=== PATIENT | female | born 1965 | race Two or more races ===

== ENCOUNTER 2019-11-15 22:00 | Inpatient (IN) | payer MEDICARE, MEDICAID ==
[~2019-11-15] VITALS: Ht 170.2 cm; Wt 90.7 kg
--- NOTE | 2019-11-15 22:00 | NUR ---
WENCESLAO C/O VERBALLY ABUSIVE TO SNF STAFF, CALLING [employer] & MAKING FALSE CLAIM PER EMT REPORT. PT ON 5150 HOLD. PT C/O BACK PAIN, PT TO BED 7, -SOB, VSS, NAD NOTED, PENDING MD BARNES
[2019-11-15 22:38] LABS: BASOPHILS # (AUTO) 0.1 /CMM (0.0-0.2); EOSINOPHILS % (AUTO) 1.4 % (0.0-6.0); HEMATOCRIT 34 % (33-45); HEMOGLOBIN 11.3 g/dL (11.5-14.8); LYMPHOCYTES # (AUTO) 2.4 /CMM (0.8-4.8); LYMPHOCYTES % (AUTO) 33.2 % (20.0-44.0); MEAN CORPUSCULAR HGB CONC 33 g/dl (31.0-36.0); MEAN CORPUSCULAR VOLUME 89 fL (82-100); MONOCYTES # (AUTO) 0.6 /CMM (0.1-1.30); MONOCYTES % (AUTO) 8.8 % (2.0-12.0); NEUTROPHILS % (AUTO) 55.6 % (43.0-81.0); PLATELET COUNT (AUTO) 356 /CMM (150-450); RED BLOOD CELL COUNT(AUTO) 3.79 MIL/uL (4.0-5.2); WHITE BLOOD COUNT (AUTO) 7.3 K/uL (4.3-11.0)
[2019-11-15 22:46] LABS: CARBON DIOXIDE 27 mmol/L (21-32); CHLORIDE 97 mmol/L (98-107); CREATININE 0.5 mg/dL (0.6-1.3); GLUCOSE 137 mg/dL (74-106); POTASSIUM 3.9 mmol/L (3.5-5.1); SODIUM SERUM 131 mmol/L (136-145); UREA NITROGEN, BLOOD 16 mg/dL (7-18)
[2019-11-15 22:52] LABS: ACETAMINOPHEN < 2 ug/ml (10-30); ALANINE AMINOTRANSFERASE 23 U/L (12-78); ALBUMIN 3.4 g/dL (3.4-5.0); ALCOHOL, BLOOD < 3 mg/dL (0-0); ALKALINE PHOSPHATASE 132 U/L (46-116); ASPARTATE AMINOTRANSFERASE 15 U/L (15-37); BILIRUBIN,DIRECT 0.1 mg/dL (0.0-0.2); BILIRUBIN,TOTAL 0.2 mg/dL (0.2-1.0); SALICYLATE 2.3 mg/dL (2.8-20.0); TOTAL PROTEIN, SERUM 7.3 g/dL (6.4-8.2)
[2019-11-15] MEDS ORDERED: LORAZEPAM 1 MG TABLET ONE (22:59)
[2019-11-15] MEDS ORDERED: LORAZEPAM 1 MG TABLET PO ONE (23:00)
[2019-11-15] MEDS ORDERED: LISI-657 PO (23:12)
[2019-11-15] MEDS ORDERED: ARIP10TA9 PO (23:12)
[2019-11-15] MEDS ORDERED: LEVO125T8 PO (23:12)
[2019-11-15] MEDS ORDERED: DIVA500T4 PO (23:12)
[2019-11-15] MEDS ORDERED: TEMA15CA5 PO (23:12)
[2019-11-15] MEDS ORDERED: LORA-259 PO (23:12)
[2019-11-15] MEDS ORDERED: ATOR10TA PO (23:12)
[2019-11-15] MEDS ORDERED: SODI100037 PO (23:12)
[2019-11-15] MEDS ORDERED: ALBU18HF2 INH (23:12)
[2019-11-15] MEDS ORDERED: OXYC-128 PO (23:12)
[2019-11-15] MEDS ORDERED: CHLO25TA13 PO (23:12)
[2019-11-15 23:18] LABS: APPEARANCE,URINE Clear (CLEAR); BILIRUBIN,URINE Negative (NEGATIVE); BLOOD, URINE Trace-lysed Ery/uL (NEGATIVE); COLOR,URINE Yellow (YELLOW); KETONES,URINE Negative (NEGATIVE); LEUKOCYTE ESTERASE ,URINE Negative (NEGATIVE); NITRITE, URINE Negative (NEGATIVE); PROTEIN,URINE Negative (NEGATIVE); UGLUCOSE Negative (NEGATIVE); UROBILINOGEN,URINE 0.2 EU/dL (0.2)
--- NOTE | 2019-11-15 23:21 | NUR ---
REPORT GIVENT TO [facility] NURSE AT [facility], WILL BE TRANSPORTED TO [facility] ONCE ALL PAPERS READY
--- NOTE | 2019-11-15 23:56 | NUR ---
PT TRANSPORTED TO [facility]
[2019-11-16 00:03] LABS: BACTERIA,URINE Few /HPF (None Seen); SQUAMOUS EPITHELIAL CELL,UR Few /HPF (None Seen); WBC,URINE NONE SEEN /HPF (0-3)
[2019-11-16] MEDS ORDERED: OXYC-128 PO (00:25)
[2019-11-16] MEDS ORDERED: ATOR10TA PO (00:25)
[2019-11-16] MEDS ORDERED: ALBU18HF2 INH (00:25)
[2019-11-16] MEDS ORDERED: BLOOD SUGAR DIAGNOSTIC 1 EACH STRIP IN ONE (00:30)
[2019-11-16] MEDS ORDERED: MAGNESIUM HYDROXIDE 30 ML UDC PO PRN (00:30)
[2019-11-16] MEDS ORDERED: TEMAZEPAM 15 MG CAPSULE PO PRN (00:30)
[2019-11-16] MEDS ORDERED: MAG HYDROX/AL HYDROX/SIMETH 30 ML UDC PO PRN (00:30)
[2019-11-16] MEDS ORDERED: ACETAMINOPHEN 325 MG TABLET PO PRN (00:30)
[2019-11-16 01:40] VITALS: BP 151/67
--- NOTE | 2019-11-16 03:27 | NUR ---
PT COMPLAINED OF PAIN LEVEL OF 7/10, MOANING. I CALLED SCRAP SHEAR OPERATOR ANA CALLED WHO GAVE AN ORDER FOR PERCOSET 5-325 1 TAB PO ONCE. PHARMACY INFORMED OF ORDER.
[2019-11-16] MEDS: oxyCODONE/APAP (5/325 MG) 1 UDTAB TABLET PO PRN ×4 (03:43→20:25)
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
--- NOTE | 2019-11-16 05:57 | NUR ---
PT REFUSED AM BLOOD DRAW FROM LAB STAFF
[2019-11-16] MEDS: LORAZEPAM 1 MG TABLET PO PRN ×3 (06:11→20:57)
--- NOTE | 2019-11-16 06:43 | NUR ---
PT BREATHING TREATMENT EQUIPMENT IN PT LOCKER, AWAITING EVALUATION BY OT BEFORE USE
--- NOTE | 2019-11-16 07:40 | NUR ---
CALLED AND LEFT A MESSAGE FOR DR COLORADO ABOUT HIS NEW ADMIT AT 0735, AND LEFT A CALL BACK NUMBER. ENDORSED TO AM SHIFT
[2019-11-16 08:00] VITALS: BP 126/56
[2019-11-16] MEDS: LEVOTHYROXINE SODIUM 125 MCG TABLET PO SCH (08:20)
[2019-11-16] MEDS: LISINOPRIL (10MG) 10 MG TABLET PO SCH (08:21)
[2019-11-16] MEDS: ALBUTEROL FS 2.5 MG/0.5 ML VIAL.NEB NEB SCH ×4 (09:52→20:35)
--- NOTE | 2019-11-16 13:43 | NUR ---
Pt. is highly agitated, aggressive, intrusive to staffs, verbally abusive, screaming and yelling. Dr. Sifuentes made aware and ordered Thorazine 50 mg IM and Ativan 2 mg IM x1 Addendum: 11/16/19 at 1405 by JIA HUBER RN Dr. Sifuentes notified that we don't have Thorazine and ordered Haldol 5 mg IM, Ativan 2 mg IM and Benadryl [address] Sifuentes made aware that pt. requested for the IM.
[2019-11-16] MEDS ORDERED: HALOPERIDOL LACTATE INJ 5 MG/ML VIAL IM ONE (14:00)
[2019-11-16] MEDS ORDERED: diphenhydrAMINE HCL 50 MG/ML VIAL IM ONE (14:00)
[2019-11-16] MEDS ORDERED: LORAZEPAM INJ 2 MG/ML VIAL IM ONE (14:00)
[2019-11-16 16:00] VITALS: BP 146/97
[2019-11-16 16:42] LABS: ALBUMIN 3.5 g/dL (3.4-5.0); BILIRUBIN,TOTAL 0.2 mg/dL (0.2-1.0); CALCIUM, SERUM 9.1 mg/dL (8.5-10.1); CREATININE 0.7 mg/dL (0.6-1.3); POTASSIUM 4.7 mmol/L (3.5-5.1); TOTAL PROTEIN, SERUM 7.4 g/dL (6.4-8.2)
[2019-11-16] MEDS: ATORVASTATIN 10 MG TABLET PO SCH (17:18)
[2019-11-16 20:13] VITALS: BP 168/71
[2019-11-16] MEDS: CARBAMAZEPINE 200 MG TABLET PO SCH (22:03)
[2019-11-16] MEDS: clonazePAM 0.5 MG TABLET PO SCH (22:04)
[2019-11-16] MEDS: chlorproMAZINE HCL 25 MG TABLET PO SCH (22:04)
[2019-11-16] MEDS: ARIPIPRAZOLE 5 MG TABLET PO SCH (22:04)
[2019-11-17] MEDS: ALBUTEROL FS 2.5 MG/0.5 ML VIAL.NEB NEB SCH ×7 (00:21→23:30)
--- NOTE | 2019-11-17 03:06 | NUR ---
PT WOKE UP COMPLAINING OF CONSTIPATION, MOM GIVEN PO. WILL CONTINUE TO MONITOR.
[2019-11-17] MEDS: oxyCODONE/APAP (5/325 MG) 1 UDTAB TABLET PO PRN ×3 (03:52→21:45)
[2019-11-17 08:00] VITALS: BP 121/49
[2019-11-17] MEDS: clonazePAM 0.5 MG TABLET PO SCH ×3 (08:06→16:45)
[2019-11-17] MEDS: chlorproMAZINE HCL 25 MG TABLET PO SCH ×3 (08:06→16:45)
[2019-11-17] MEDS: LEVOTHYROXINE SODIUM 125 MCG TABLET PO SCH (08:06)
[2019-11-17] MEDS: LISINOPRIL (10MG) 10 MG TABLET PO SCH (08:06)
[2019-11-17] MEDS: CARBAMAZEPINE 200 MG TABLET PO SCH ×3 (08:08→23:03)
[2019-11-17 08:30] LABS: CHOLESTEROL 152 mg/dL (<200); HDL CHOLESTEROL 88 mg/dL (40-60); LDL 59 mg/dL (0-99); TRIGLYCERIDES 71 mg/dL (30-150)
--- NOTE | 2019-11-17 10:49 | NUR ---
Facility Contact: THANH contacted Faisal ([phone]) from [facility] and he stated that the pt will be accepted back to their facility.
--- NOTE | 2019-11-17 11:03 | NUR ---
CONTACTED PHARMACY X3 D/T [facility] AWAITING MEDICATION.
[2019-11-17] MEDS: ARIPIPRAZOLE 5 MG TABLET PO SCH ×2 (12:35→16:45)
--- NOTE | 2019-11-17 14:31 | NUR ---
Family Contact: THANH called the pts sister, Toshia ([phone]), and informed her that the pt appears to be labile and not appropriate for discharge at this time. THANH informed her that [facility] will take her back and the pt would like to return.
--- NOTE | 2019-11-17 14:35 | NUR ---
Initial Discharge Plan: Pt currently resides at [facility] located at [address] [place] [address]; ([phone]). Per pt, she would like to return to the facility. THANH spoke to Faisal ([phone]) from the facility and he stated that the pt will be accepted back. THANH will work with the MD and the pt regarding appropriate discharge planning. THANH will form a safe and proper discharge plan.
[2019-11-17 16:00] VITALS: BP 109/63
--- NOTE | 2019-11-17 16:32 | NUR ---
SPOKE TO PHARMACY REGARDING PERCOCET BEING SCANNED UNDER THE "ONE TIME" ORDER. ONE TIME ORDER CANCELLED BY PHARMACIST.
[2019-11-17] MEDS: LORAZEPAM 1 MG TABLET PO PRN (16:47)
[2019-11-17] MEDS: GUAIFENESIN 300 MG/15 ML UDC PO PRN (16:47)
--- NOTE | 2019-11-17 17:03 | NUR ---
PRN ATIVAN GIVEN FOR RESTLESSNESS AND ROBITUSSIN GIVEN FOR COUGH/CONGESTION.
[2019-11-17] MEDS: ATORVASTATIN 10 MG TABLET PO SCH (17:04)
[2019-11-17 20:30] VITALS: BP 104/44
[2019-11-17 21:40] VITALS: BP 145/66
--- NOTE | 2019-11-17 21:46 | NUR ---
[facility] RN NOTES: PT C/O OF LOWER BACK PAIN. PT STATED, "IM HAVING DAMN BACK PAIN. I NEED MY PAIN MED." CHECKED PT VITALS WITHIN NORMAL LEVELS. OFFERED PERCOCET 5/325MG PO PRN ORDERED. PT AGREED. TOLERATED MEDICATION WELL CONTINUE TO MONITOR.
[2019-11-18] MEDS: ALBUTEROL FS 2.5 MG/0.5 ML VIAL.NEB NEB SCH ×6 (04:39→23:48)
[2019-11-18 08:00] VITALS: BP 126/58
[2019-11-18] MEDS: ARIPIPRAZOLE 5 MG TABLET PO SCH ×2 (08:21→17:14)
[2019-11-18] MEDS: LEVOTHYROXINE SODIUM 125 MCG TABLET PO SCH (08:21)
[2019-11-18] MEDS: CARBAMAZEPINE 200 MG TABLET PO SCH ×3 (08:21→21:28)
[2019-11-18] MEDS: GUAIFENESIN 300 MG/15 ML UDC PO PRN ×2 (08:21→21:28)
[2019-11-18] MEDS: clonazePAM 0.5 MG TABLET PO SCH ×3 (08:21→17:14)
[2019-11-18] MEDS: chlorproMAZINE HCL 25 MG TABLET PO SCH ×3 (08:21→17:14)
[2019-11-18] MEDS: oxyCODONE/APAP (5/325 MG) 1 UDTAB TABLET PO PRN ×3 (08:22→23:17)
[2019-11-18] MEDS: LISINOPRIL (10MG) 10 MG TABLET PO SCH (08:22)
--- NOTE | 2019-11-18 08:24 | NUR ---
PRN ROBITUSSIN GIVEN FOR COUGH AND PRN NORCO GIVEN FOR GENERALIZED PAIN 10/10
[2019-11-18] MEDS: LORAZEPAM 1 MG TABLET PO PRN (12:36)
--- NOTE | 2019-11-18 12:40 | NUR ---
PRN ATIVAN GIVEN FOR RESTLESSNESS
[2019-11-18 16:00] VITALS: BP 128/83
[2019-11-18] MEDS: ATORVASTATIN 10 MG TABLET PO SCH (17:14)
--- NOTE | 2019-11-18 17:25 | NUR ---
PRN NORCO GIVEN FOR PAIN AND PRN ROBITUSSIN GIVEN FOR COUGH
--- NOTE | 2019-11-18 17:53 | NUR ---
WENT IN ROOM TO GIVE PATIENT'S ROOMMATE MEDICATION. UPON ENTERING, I OBSERVED PATIENT SOUND ASLEEP. A FEW MOMENTS LATER, PATIENT NOTICED I WAS IN THE ROOM AND SHE STARTED MOANING AND SCREAMING THAT SHE'S IN PAIN. THEN WHEN I LEFT THE ROOM PATIENT WAS STOPPED SCREAMING AND WENT BACK TO SLEEP. NORCO WAS ALREADY ADMINISTERED PRIOR TO THIS INCIDENT. WILL CONTINUE TO MONITOR PATIENT FOR BEHAVIOR AND PAIN.
[2019-11-18 20:17] VITALS: BP 119/53
--- NOTE | 2019-11-18 21:28 | NUR ---
RN NOTE: PT MEDICATED WITH ROBITUSSIN FOR CONGESTION
--- NOTE | 2019-11-18 23:17 | NUR ---
RN NOTE: PT C/O 10/10 GENERALIZED PAIN. MEDICATED WITH PERCOCET PRN.
[2019-11-19] MEDS: ALBUTEROL FS 2.5 MG/0.5 ML VIAL.NEB NEB SCH ×6 (04:54→23:30)
[2019-11-19] MEDS ORDERED: ALBUTEROL FS 2.5 MG/0.5 ML VIAL.NEB NEB PRN (05:00)
--- NOTE | 2019-11-19 05:06 | NUR ---
THIRD TREATMENT WAS GIVEN LATE BECAUSE PATIENT WAS SLEEPING AT 0300 AND RN ASKED NOT TO WAKE UP PATIENT.
[2019-11-19] MEDS: oxyCODONE/APAP (5/325 MG) 1 UDTAB TABLET PO PRN ×3 (05:23→18:11)
[2019-11-19] MEDS: LORAZEPAM 1 MG TABLET PO PRN ×2 (05:23→11:00)
--- NOTE | 2019-11-19 05:24 | NUR ---
RN NOTE: PT SCREAMING DEMANDING ATIVAN PRN AND PERCOCET FOR PAIN. C/O 10/10 GENERALIZED PAIN. MED WITH ATIVAN 1MG AND PERCOCET PRN
[2019-11-19] MEDS: GUAIFENESIN 300 MG/15 ML UDC PO PRN ×3 (05:47→22:39)
--- NOTE | 2019-11-19 05:48 | NUR ---
RN NOTE: PT C/O CONGESTION. MED WITH DAWIT PRN.
[2019-11-19 08:00] VITALS: BP 130/99
[2019-11-19] MEDS: ARIPIPRAZOLE 5 MG TABLET PO SCH ×2 (08:49→17:05)
[2019-11-19] MEDS: LISINOPRIL (10MG) 10 MG TABLET PO SCH (08:50)
[2019-11-19] MEDS: CARBAMAZEPINE 200 MG TABLET PO SCH ×3 (08:50→21:18)
[2019-11-19] MEDS: clonazePAM 0.5 MG TABLET PO SCH ×3 (08:50→17:47)
[2019-11-19] MEDS: chlorproMAZINE HCL 25 MG TABLET PO SCH ×5 (08:50→21:19)
[2019-11-19] MEDS: LEVOTHYROXINE SODIUM 125 MCG TABLET PO SCH (08:51)
--- NOTE | 2019-11-19 10:16 | NUR ---
MEDICATED FOR GENERALIZED PAIN WITH PERCOCETT.
--- NOTE | 2019-11-19 11:00 | NUR ---
GIVEN ATIVAN PO FOR NERVES.
--- NOTE | 2019-11-19 11:22 | NUR ---
unable to administed HHN med; pt in hallway in wheelchair, yelling, refused tx, wants to "eat and drink first", RN aware
--- NOTE | 2019-11-19 11:37 | NUR ---
MEDICATED WITH ROBITUSSIN FOR LOOSE COUGH.
[2019-11-19] MEDS ORDERED: hydrOXYzine PAMOATE 25 MG CAPSULE PO PRN (14:00)
--- NOTE | 2019-11-19 15:58 | NUR ---
GIVEN VISTARIL FOR NERVES,EXPLAINED THAT PSYCHIATRIST CHANGED SOME OF MEDS DUE TO GROGGINESS.
[2019-11-19 16:00] VITALS: BP 128/90
[2019-11-19] MEDS: ATORVASTATIN 10 MG TABLET PO SCH (18:10)
--- NOTE | 2019-11-19 18:14 | NUR ---
GIVEN PERCOCET FOR GENERALIZED PAIN.
[2019-11-19 20:24] VITALS: BP 169/54
--- NOTE | 2019-11-19 22:39 | NUR ---
RN NOTE: PT MED WITH ROBITUSSIN FOR CONGESTION
--- NOTE | 2019-11-19 22:52 | NUR ---
RN NOTE: MED WITH RESTORIL 15MG PRN PER PT REQUEST FOR INSOMNIA
[2019-11-19] MEDS ORDERED: TEMAZEPAM 7.5 MG CAPSULE PO PRN (23:00)
[2019-11-20] MEDS: ALBUTEROL FS 2.5 MG/0.5 ML VIAL.NEB NEB SCH ×5 (03:50→20:35)
[2019-11-20] MEDS: LEVOTHYROXINE SODIUM 125 MCG TABLET PO SCH (07:30)
--- NOTE | 2019-11-20 08:30 | NUR ---
RN NOTES LAB REPORTED TEGETROL LEVEL OF 12.[address] GUADALUPE STATES HE WILL PLACE ORDERS WHEN EVALUATING PATIENT TO HOLD DOSE FOR NOW.
[2019-11-20 09:00] VITALS: BP 113/68
[2019-11-20] MEDS: chlorproMAZINE HCL 25 MG TABLET PO SCH ×3 (09:00→18:32)
[2019-11-20] MEDS: LISINOPRIL (10MG) 10 MG TABLET PO SCH (09:00)
[2019-11-20] MEDS: clonazePAM 0.5 MG TABLET PO SCH ×3 (09:00→18:32)
[2019-11-20] MEDS: CARBAMAZEPINE 200 MG TABLET PO SCH ×2 (09:00→13:00)
[2019-11-20] MEDS: ARIPIPRAZOLE 5 MG TABLET PO SCH ×3 (09:00→18:33)
--- NOTE | 2019-11-20 10:00 | NUR ---
RN NOTES PATIENT NOTED LETHARGIC, PATIENT HAD AN EPISODE OF VOMITING AND PATIENT AMBULATED TO BATHROOM RETURNED TO BED NOTED SLEEPING IN BED. HELD ALL MEDICATIONS DUE TO SEDATION. VS WNL. PATIENT REQUESTED BREATHING TREATMENT RT MADE AWARE TREATMENT GIVEN.
--- NOTE | 2019-11-20 10:30 | NUR ---
RN NOTES PATIENT EVALUATED BY DR. GUADALUPE.
--- NOTE | 2019-11-20 13:00 | NUR ---
RN NOTES PATIENT SEEN AND EVALUATED BY DR. LEVINE, INFORMED HIM OF PATIENTS SEDATED STATE. NO NEW ORDERS GIVEN CONTINUE TO MONITOR.
--- NOTE | 2019-11-20 17:45 | NUR ---
RN NOTES PATIENT NOTED VOMITING STATES SHE FEELS NAUSEAS. NOTED PATIENT STIMULATING VOMITING BY PUTTING HER FINGER IN HER THROAT. SHE STATES SHE FEELS SICK. DR. LEVINE MADE AWARE ORDERS FOR CBC,BMP, UA AND CHEST XRAY. ALSO ORDERS FOR ZOFRAN 4MG NEEDED FOR NAUSEA. PATIENTS VS WNL BP OF 156/98 PULSE 89 O2 SAT. 92% WILL CONTINUE TO MONITOR.
[2019-11-20] MEDS: ATORVASTATIN 10 MG TABLET PO SCH (18:00)
--- NOTE | 2019-11-20 18:15 | NUR ---
RN NOTES PATIENT NOTED ON HER WHEELCHAIR NAKED IN THE HALLWAY. PATIENT ALSO NOTED URINATING ON THE FLOOR IN HER ROOM. SCHEDULED MEDICATIONS ADMINISTERED. WILL ENDORSE CARE TO PM SHIFT.
[2019-11-20] MEDS: oxyCODONE/APAP (5/325 MG) 1 UDTAB TABLET PO PRN (18:16)
[2019-11-20] MEDS ORDERED: ONDANSETRON 4 MG TAB.RAPDIS PO PRN (18:30)
[2019-11-20 19:38] LABS: CALCIUM, SERUM 8.7 mg/dL (8.5-10.1); CREATININE 0.5 mg/dL (0.6-1.3); POTASSIUM 4.7 mmol/L (3.5-5.1)
--- NOTE | 2019-11-20 20:05 | NUR ---
CRITICAL LAB VALUE MIDDLEWARE SYSTEMS ARCHITECT ARNEL CALLED TO INFORM THAT PATIENT'S SODIUM LEVEL IS 112 & CHLORIDE IS 80. PATIENT IS DOZING INTERMITTENTLY, AROUSABLE & LETHARGIC. VITALS CHECKED 154/84, 82, 20, 97.6, REFUSED PULSE OX AT THIS TIME, GOT AGITATED & WANTED TO BE COVERED WITH THE BLANKET RIGHT AWAY, CALLED LINE CONTROLLER EPIC MD TO INFORM ABOUT CRITICAL LAB VALUES , LEFT A MESSAGE & WAITING FOR MD TO CALL BACK. WILL CONTINUE TO MONITOR VERY CLOSELY FOR ANY CHANGE OF CONDITION.
--- NOTE | 2019-11-20 20:52 | NUR ---
TRANSFER PATIENT TO [facility] DR. PEREZ CALLED BACK, INFORMED HIM ABOUT PATIENT'S CURRENT CONDITION, CRITICAL LAB VALUE OF SODIUM 112 & CHLORIDE 80, LETHARGIC BUT AROUSABLE. A & O X 2, CONFUSED AT THIS TIME. VITALS 154/84, 82, 20, 97.6. MD CLIVE PEREZ ORDERED TO TRANSFER THE PATIENT TO [facility] & [facility] STAFF TO CALL DR. PEREZ ONCE PATIENT IS TRANSFERRED TO [facility].
--- NOTE | 2019-11-20 20:53 | NUR ---
GPS RN NOTE CHARGE NURSE CALLED DR. FIGUEROA & INFORMED ABOUT PATIENT'S CURRENT CONDITION & NEW ORDERS BY MD CLIVE PEREZ. ORDERED TO CONTINUE 14 DAY HOLD & CONTINUE ALL PSYCH MEDS. ORDER NOTED & CARRIED OUT. CONTINUING TO MONITOR THE PATIENT CLOSELY FOR ANY CHANGE OF CONDITION.
[2019-11-20 21:02] LABS: BASOPHILS # (AUTO) 0.1 /CMM (0.0-0.2); BASOPHILS % (AUTO) 1.1 % (0.0-2.0); EOSINOPHILS % (AUTO) 1.5 % (0.0-6.0); HEMATOCRIT 35 % (33-45); HEMOGLOBIN 11.8 g/dL (11.5-14.8); LYMPHOCYTES % (AUTO) 17.9 % (20.0-44.0); MEAN CORPUSCULAR HGB CONC 33 g/dl (31.0-36.0); MEAN CORPUSCULAR VOLUME 89 fL (82-100); MONOCYTES # (AUTO) 0.6 /CMM (0.1-1.30); MONOCYTES % (AUTO) 10.2 % (2.0-12.0); NEUTROPHILS % (AUTO) 69.3 % (43.0-81.0); PLATELET COUNT (AUTO) 287 /CMM (150-450); RED BLOOD CELL COUNT(AUTO) 3.99 MIL/uL (4.0-5.2); WHITE BLOOD COUNT (AUTO) 5.8 K/uL (4.3-11.0)
--- NOTE | 2019-11-20 21:28 | NUR ---
PATIENT TRANSFERRED TO [facility] PATIENT IS AWAKE, LETHARGIC, A & O X 2, CONFUSED, NO ACUTE DISTRESS NOTED AT THIS TIME. REFUSING CARE, GETS AGITATED WHEN ADL CARE OFFERED, UNCOOPERATIVE BEHAVIOR. REFUSED TO PUT GOWN ON DURING TRANSFER, WANTED TO BE NAKED ALL THE TIME BUT COVERED WITH THE BLANKET. ALL REQUIRED TRANSFER PAPERS/MEDICATION LIST PREPARED & SENT WITH THE PATIENT. TRANSFERRED PATIENT TO [facility]/TELE IN STABLE CONDITION WITH 2 STAFF MEMBERS & SAFETY PRECAUTIONS MAINTAINED. ALL BELONGINGS SENT WITH THE PATIENT. REPORT GIVEN TO RN IN [facility] AT BEDSIDE. SISTER GIORGIO WAS CALLED & LEFT A VOICEMAIL AT [phone]. [facility] RN WAS MADE AWARE TO CALL DR. PEREZ FOR FURTHER TREATMENT ORDERS.
[2019-11-21] MEDS ORDERED: ACET-868 PO (07:55)
[2019-11-21] MEDS ORDERED: GUAI100S11 PO (07:55)
[2019-11-21] MEDS ORDERED: MAG30ORA PO (07:55)
[2019-11-21] MEDS ORDERED: CLON0.5T4 PO (07:55)
[2019-11-21] MEDS ORDERED: ALBU2.5V38 IH (07:55)
[2019-11-21] MEDS ORDERED: MAGN400O6 PO (07:55)
[2019-11-21] MEDS ORDERED: HYDR-3895 PO (07:55)
[2019-11-21] MEDS ORDERED: ONDA4TAB5 PO (07:55)
[2019-11-21] MEDS ORDERED: CARB200T PO (07:55)
--- NOTE | 2019-11-21 08:28 | NUR ---
Discharge Note: Pt was discharged to the Medical Floor of [facility] on 11/20/19.
== END 2019-11-20 21:23 | disposition short-term general hospital (02) | DRG 885 ==
LOC: ER 22:01 → GPS 23:13
PROVIDERS: ADMIT Psychiatry & Neurology Psychiatry; ATTEND Nurse Practitioner Acute Care
DX: F31.64 Bipolar disorder, current episode mixed, severe, with psychotic features (principal); E87.1 Hypo-osmolality and hyponatremia; I10 Essential (primary) hypertension; F29 Unspecified psychosis not due to a substance or known physiological condition; F41.9 Anxiety disorder, unspecified; G89.29 Other chronic pain; M54.9 Dorsalgia, unspecified; E03.9 Hypothyroidism, unspecified; F17.210 Nicotine dependence, cigarettes, uncomplicated; J45.909 Unspecified asthma, uncomplicated; E78.5 Hyperlipidemia, unspecified; M19.90 Unspecified osteoarthritis, unspecified site; Z88.2 Allergy status to sulfonamides
CPT/HCPCS: 36415; 71045-TC; 80048-TC; 80053-TC; 80061-TC; 80076-TC; 80156-TC; 80305; 81000-TC; 85025-TC; 87081-TC; 97116-TC; 97530-TC; 97535-TC; G0480; J1200; J1630; J2060; J3230; Q0161; Q0162; Q0177

== ENCOUNTER 2019-11-20 21:27 | Inpatient (IN) | payer MEDICARE, MEDICAID ==
[~2019-11-20] VITALS: Ht 162.6 cm; Wt 109.3 kg
[~2019-11-20 21:27] MED LIST: ALBU18HF2 INH; ARIP10TA9 PO; ATOR10TA PO; CHLO25TA13 PO; DIVA500T4 PO; LEVO125T8 PO; LISI-657 PO; LORA-259 PO; OXYC-128 PO; SODI100037 PO; TEMA15CA5 PO
[2019-11-20 22:00] VITALS: BP 130/58
[2019-11-20] MEDS ORDERED: IV Sodium Chloride 3% 500 ML 500 ML IV SCH (22:30)
[2019-11-20] MEDS ORDERED: IV Sodium Chloride 3% 500 ML 100 ML IV ONE (22:30)
--- NOTE | 2019-11-20 22:52 | NUR ---
[facility] RN NOTE ADMITTED 54 YEARS OLD FEMALE PT FROM [facility] WITH THE DX OF HYPONATREMIA BY DR CLIVE PEREZ. PT IS A/O X 2, NO SOB, NO DISTRESS OR DISCOMFORT NOTED. DENIES PAIN. GETS AGITATED EASILY. NO SI NOTED AT THIS TIME. PT ALSO DENIES ANY SUICIDAL THOUGHTS. SKIN INTACT. NO IV ACCESS YET. WILL TRY TO INSERT NEW LINE. ADMITTING ORDERS CHECKED AND CARRIED OUT. SITTER AT BED SIDE. PT IS ON HOLD 5250. ON TELE MONITOR SR HR 93. ALL NEEDS ATTENDED. SIDE RAILS UP X 3 AND CALL LIGHT WITHIN REACH. VSS. CONTINUE TO MONITOR CLOSELY.
[2019-11-20] MEDS ORDERED: ONDANSETRON HCL/PF 4 MG/2 ML VIAL IVP PRN (23:00)
[2019-11-20] MEDS ORDERED: Z GUARD REMEDY 2 OZ OINT TP PRN (23:00)
[2019-11-20 23:28] LABS: CALCIUM, SERUM 9.3 mg/dL (8.5-10.1); CREATININE 0.5 mg/dL (0.6-1.3); MAGNESIUM 1.6 mg/dL (1.8-2.4); PHOSPHORUS 3.6 mg/dL (2.5-4.9); POTASSIUM 4.1 mmol/L (3.5-5.1)
--- NOTE | 2019-11-20 23:30 | NUR ---
[facility] RN NOTE LEONARDO RN INSERTED NEW IV LINE #22 G IN RFA. STARTED 3% NS 100 ML BOLUS THEN WILL START 30 ML/HR PER MD ORDERS. PT IS SLEEPING, COMFORTABLY. SITTER AT BED SIDE.
--- NOTE | 2019-11-20 23:45 | NUR ---
[facility] RN NOTE CRITICAL LAB OF SERUM OSMOL 236, NA 111, CL 78. DR CLIVE PEREZ INFORMED. NO NEW ORDER JUST SEIZURE PRECAUTIONS.
[2019-11-21] MEDS: LORAZEPAM 1 MG TABLET PO PRN ×3 (00:47→20:04)
[2019-11-21] MEDS: TEMAZEPAM 15 MG CAPSULE PO PRN ×2 (00:47→21:44)
--- NOTE | 2019-11-21 00:48 | NUR ---
[facility] RN NOTE PT IS UNABLE TO SLEEP AND BECOME VERY AGITATED. RESTORIL 15 MG FOR SLEEP AND ATIVAN 1 MG PO GIVEN FOR AGITATION. 3 %NS INFUSING WELL. NO S/S OF INFILTRATION NOTED.
[2019-11-21] MEDS: ACETAMINOPHEN 325 MG TABLET PO PRN (01:11)
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
[2019-11-21 02:06] LABS: CALCIUM, SERUM 8.9 mg/dL (8.5-10.1); CREATININE 0.5 mg/dL (0.6-1.3); MAGNESIUM 1.5 mg/dL (1.8-2.4); PHOSPHORUS 3.8 mg/dL (2.5-4.9)
--- NOTE | 2019-11-21 02:14 | NUR ---
[facility] RN NOTE HEADACHE SUBSIDE 11/04.
[2019-11-21] MEDS ORDERED: ALBUTEROL FS 2.5 MG/0.5 ML VIAL.NEB NEB PRN ×2 (03:30→14:30)
[2019-11-21 03:50] LABS: CREATININE 0.7 mg/dL (0.6-1.3); MAGNESIUM 1.7 mg/dL (1.8-2.4); PHOSPHORUS 4.1 mg/dL (2.5-4.9); POTASSIUM 3.7 mmol/L (3.5-5.1)
[2019-11-21] MEDS ORDERED: Magnesium 1 GM/2 ML VIAL IV ONE (04:00)
[2019-11-21] MEDS: Magnesium 1GM/D5W 100ML PREMIX PIGGYBACK IV SCH ×2 (04:32→05:44)
--- NOTE | 2019-11-21 04:52 | NUR ---
NET FISHER NOTE MAG LEVEL 1. 7 FROM 1.5. CLIVE INFORMED AND RECEIVED NEW ORDER TO GIVE ONLY 2 GM OF MAG IV. ORDER NOTED AND CARRIED OUT. Addendum: 11/21/19 at 0628 by YUE LOWRY RN ICU WRITTEN IN ERROR SUPPOSE HIRO DELGADILLO
[2019-11-21] MEDS: oxyCODONE/APAP (5/325 MG) 1 UDTAB TABLET PO PRN ×2 (05:14→14:45)
--- NOTE | 2019-11-21 05:14 | NUR ---
[facility] RN NOTE PT C/O PAIN 8/10 ALL OVER, PERCOCET 1 TAB PO GIVEN. CONTINUE TO MONITOR HER.
--- NOTE | 2019-11-21 06:14 | NUR ---
[facility] RN NOTE PT IN BED FALLING ASLEEP, PAIN SUBSIDED 2/10. SITTER AT BED SIDE.
[2019-11-21 06:29] LABS: BASOPHILS % (AUTO) 0.2 % (0.0-2.0); EOSINOPHILS % (AUTO) 0.5 % (0.0-6.0); HEMATOCRIT 38 % (33-45); HEMOGLOBIN 12.9 g/dL (11.5-14.8); LYMPHOCYTES # (AUTO) 0.9 /CMM (0.8-4.8); LYMPHOCYTES % (AUTO) 11.2 % (20.0-44.0); MEAN CORPUSCULAR HGB CONC 34 g/dl (31.0-36.0); MEAN CORPUSCULAR VOLUME 86 fL (82-100); MONOCYTES # (AUTO) 0.7 /CMM (0.1-1.30); NEUTROPHILS # (AUTO) 6.4 /CMM (1.8-8.9); NEUTROPHILS % (AUTO) 79.1 % (43.0-81.0); PLATELET COUNT (AUTO) 359 /CMM (150-450); RED BLOOD CELL COUNT(AUTO) 4.38 MIL/uL (4.0-5.2); WHITE BLOOD COUNT (AUTO) 8.1 K/uL (4.3-11.0)
[2019-11-21 06:42] LABS: ALBUMIN 3.5 g/dL (3.4-5.0); BILIRUBIN,TOTAL 0.2 mg/dL (0.2-1.0); CALCIUM, SERUM 9.1 mg/dL (8.5-10.1); CREATININE 0.6 mg/dL (0.6-1.3); MAGNESIUM 2.1 mg/dL (1.8-2.4); PHOSPHORUS 4.2 mg/dL (2.5-4.9); POTASSIUM 3.7 mmol/L (3.5-5.1); TOTAL PROTEIN, SERUM 7.3 g/dL (6.4-8.2)
[2019-11-21 07:10] LABS: THYROID STIMULATING HORMONE 18.117 uIU/mL (0.358-3.74)
--- NOTE | 2019-11-21 07:30 | NUR ---
[facility] RN AM NOTE PT IN BED, FROM [facility], A/O X 2, FOLLOWS COMMAND, ON 5249 EXPIRES Nov, ON 2L O2 NASAL CANULA, NO SOB, NO DISTRESS OR DISCOMFORT NOTED. DENIES PAIN. GETS AGITATED EASILY. NO SI NOTED AT THIS TIME. PT ALSO DENIES ANY SUICIDAL THOUGHTS. LEFT HAND IV G 20 WITH 3%NS AT 30 ML/HR, SITE CLEAR. SITTER AT BED SIDE. NEEDS ANTICIPATED, SIDE RAILS UP X 3 AND CALL LIGHT WITHIN REACH. BED LOW LOCKED, SAFETY MEASURES IN PLACE. WILL CONTINUE TO MONITOR CLOSELY.
[2019-11-21] MEDS: LEVOTHYROXINE SODIUM 125 MCG TABLET PO SCH (07:36)
[2019-11-21] MEDS ORDERED: HYDR-3895 PO (07:55)
[2019-11-21] MEDS ORDERED: ACET-868 PO (07:55)
[2019-11-21] MEDS ORDERED: MAG30ORA PO (07:55)
[2019-11-21] MEDS ORDERED: GUAI100S11 PO (07:55)
[2019-11-21] MEDS ORDERED: ALBU2.5V38 IH (07:55)
[2019-11-21] MEDS ORDERED: CARB200T PO (07:55)
[2019-11-21] MEDS ORDERED: ONDA4TAB5 PO (07:55)
[2019-11-21] MEDS ORDERED: MAGN400O6 PO (07:55)
[2019-11-21] MEDS ORDERED: CLON0.5T4 PO (07:55)
[2019-11-21 08:00] VITALS: BP 114/76
[2019-11-21 08:01] LABS: CALCIUM, SERUM 9.1 mg/dL (8.5-10.1); CREATININE 0.5 mg/dL (0.6-1.3); POTASSIUM 3.9 mmol/L (3.5-5.1)
[2019-11-21 08:04] LABS: MAGNESIUM 2.4 mg/dL (1.8-2.4); PHOSPHORUS 4.3 mg/dL (2.5-4.9)
[2019-11-21] MEDS: DIVALPROEX SODIUM 500 MG TABLET.DR PO SCH ×2 (08:44→20:04)
[2019-11-21] MEDS: LISINOPRIL (10MG) 10 MG TABLET PO SCH (08:44)
[2019-11-21] MEDS ORDERED: IV NS 0.9% 1,000 ML IV PRN (09:30)
[2019-11-21] MEDS ORDERED: IV NS 0.9% 1,000 ML BAG IV PRN (09:30)
--- NOTE | 2019-11-21 09:30 | NUR ---
[facility] RN NOTES DUE MEDS GIVEN PT FOR FOLLOW UP FOR PSYCH CONSULT C/O DR. COLORADO PER DR. FIGUEROA.
[2019-11-21 10:39] LABS: CALCIUM, SERUM 8.7 mg/dL (8.5-10.1); CREATININE 0.7 mg/dL (0.6-1.3); POTASSIUM 3.7 mmol/L (3.5-5.1)
[2019-11-21 10:43] LABS: MAGNESIUM 2.1 mg/dL (1.8-2.4); PHOSPHORUS 3.9 mg/dL (2.5-4.9)
[2019-11-21] MEDS ORDERED: IV Sodium Chloride 3% 500 ML 500 ML IV PRN (11:00)
[2019-11-21] MEDS ORDERED: IPRATROPIUM NEB FS 0.5 MG/2.5 ML AMPUL.NEB NEB PRN (14:30)
[2019-11-21 16:00] VITALS: BP 124/73
--- NOTE | 2019-11-21 16:49 | NUR ---
RN NOTES PATIENT PULLED OUT HER IV, AND LAUGHING ABOUT IT. EXPLAINED THE RISK AND BENEFIT OF HAVING ONE. PATIENT REFUSED. 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 RELAYED TO LAKESHIA RAMOS. OKAY FOR NOW TO HAVE NO IV.
--- NOTE | 2019-11-21 17:03 | NUR ---
RN NOTES URINE SPECIMEN COLLECTED. CALLED LAB FOR GUEST SERVICE TEAM LEADER
[2019-11-21 17:29] LABS: CREATININE, URINE < 13.0 MG/DL (30.0-125.0); URINE SODIUM, RANDOM 13 mmol/l (40-220); URINE TOTAL PROTEIN 2.3 mg/dL (0-11.9)
[2019-11-21] MEDS ORDERED: ATORVASTATIN 10 MG TABLET PO SCH ×2 (18:00→22:00)
[2019-11-21 18:32] LABS: OSMOLALITY,URINE 119 mOS/kg (340-1090)
--- NOTE | 2019-11-21 18:41 | NUR ---
MS RN CLOSING NOTE PT IN BED, RESTING, A/O X 2, FOLLOWS COMMAND, ON 5249 EXPIRES Nov, ON 2L O2 NASAL CANULA, ON AND OFF, NO SOB, NO DISTRESS OR DISCOMFORT NOTED. DENIES PAIN. GETS AGITATED EASILY. NO SI NOTED AT THIS TIME. PT ALSO DENIES ANY SUICIDAL THOUGHTS. NO IV, PATIENT PULLED IT OUT, MD AWARE. SITTER AT BED SIDE. ALL NEEDS MET AT THIS TIME. SIDE RAILS UP X 3 AND CALL LIGHT WITHIN REACH. BED LOW LOCKED, SAFETY MEASURES IN PLACE. WILL ENDORSE TO NEXT SHIFT FOR ED.
--- NOTE | 2019-11-21 19:55 | NUR ---
RN MS OPENING NOTES RECEIVED PATIENT IN BED AWAKE, NOT ANSWERING ANY NURSE'S QUESTIONS, USING CURSE WORDS INSTEAD. PUTTING HER MIDDLE FINGER UP. BREATHING EVEN AND UNLABORED. NO SOB ON 2LPM NC. NO IV DUE TO REFUSAL. SITTER AT BEDSIDE. ALL OTHER NEEDS ATTENDED. SAFETY MEASURES IN PLACE. CALL LIGHT WITHIN REACH,. WILL CONTINUE TO MONITOR .
[2019-11-21 20:00] VITALS: BP 134/70
[2019-11-21] MEDS ORDERED: chlorproMAZINE HCL 25 MG TABLET ONE (22:54)
[2019-11-21] MEDS: chlorproMAZINE HCL 25 MG TABLET PO SCH (22:57)
[2019-11-22] MEDS: oxyCODONE/APAP (5/325 MG) 1 UDTAB TABLET PO PRN ×3 (00:31→14:16)
--- NOTE | 2019-11-22 01:20 | NUR ---
RN MS NOTES PATIENT COMPLAINING OF CONSTIPATION, REQUESTING MOM. INFORMED GUN SEALING MACHINE OPERATOR CLIVE PEREZ REGARDING PATIENT'S REQUEST, WITH ORDER FOR MOM QDAILY PRN. ORDER NOTED AND CARRIED OUT.
[2019-11-22] MEDS ORDERED: MAGNESIUM HYDROXIDE 30 ML UDC PO PRN (01:30)
[2019-11-22] MEDS: LORAZEPAM 1 MG TABLET PO PRN (05:29)
[2019-11-22] MEDS: ACETAMINOPHEN 325 MG TABLET PO PRN (05:30)
--- NOTE | 2019-11-22 06:38 | NUR ---
RN MS CLOSING NOTES PATIENT SITTING IN BED. NO ACUTE CHANGES. REMAINS CONFUSED, NEEDY, AND CURSES A LOT. BREATHING EVEN AND UNLABORED. TOLERATING ROOM AIR. NO IV DUE TO REFUSAL. SITTER AT BEDSIDE. NO FALLS/INJURY NOTED. ALL OTHER NEEDS ATTENDED. SAFETY MEASURES IN PLACE. CALL LIGHT WITHIN REACH,. WILL ENDORSE TO ON COMING NURSE FOR ED.
[2019-11-22 06:45] LABS: CALCIUM, SERUM 8.7 mg/dL (8.5-10.1); CREATININE 0.5 mg/dL (0.6-1.3); PHOSPHORUS 3.8 mg/dL (2.5-4.9); POTASSIUM 3.9 mmol/L (3.5-5.1)
--- NOTE | 2019-11-22 07:00 | NUR ---
RN MS NOTES PATIENT IS SITTING IN BED. PATIENT IS A/O X2 . PATIENT IS ON ROOM AIR NO SOB, NO ACUTE RESPIRATORY DISTRESS. NO PAIN. PATIENT AT THIS TIME IS COMPLIANT WITH CARE. PATIENT IS INCON/CON. PATIENT HAS SITTER AT BEDSIDE. PATIENT HAS NO IV ACCESS. PATIENT DOES NOT WANT IV SITE AT ALL. PATIENT PROVIDED EDUCATION AND PATIENT STILL HAS RESISTANT WITH CARE. BED LOCKED AND LOWEST POSITION CALL LIGHT WITH IN REACH. ALL SAFETY MEASURE IMPLEMENTED PER HOSPITAL POLICY.
[2019-11-22 07:15] LABS: THYROID STIMULATING HORMONE 42.151 uIU/mL (0.358-3.74); URIC ACID 4.4 mg/dL (2.6-7.2)
[2019-11-22] MEDS ORDERED: ARIPIPRAZOLE 5 MG TABLET PO SCH (09:00)
[2019-11-22] MEDS: DIVALPROEX SODIUM 500 MG TABLET.DR PO SCH (09:12)
[2019-11-22] MEDS: clonazePAM 0.5 MG TABLET PO SCH ×2 (09:12→12:43)
[2019-11-22 09:13] VITALS: BP 120/62
[2019-11-22] MEDS: LISINOPRIL (10MG) 10 MG TABLET PO SCH (09:13)
[2019-11-22] MEDS: chlorproMAZINE HCL 25 MG TABLET PO SCH ×2 (09:18→12:43)
[2019-11-22] MEDS: CARBAMAZEPINE 200 MG TABLET PO SCH ×2 (09:18→12:43)
[2019-11-22] MEDS: LEVOTHYROXINE SODIUM 125 MCG TABLET PO SCH (09:20)
[2019-11-22] MEDS ORDERED: ALBUTEROL FS 2.5 MG/0.5 ML VIAL.NEB NEB ONE (14:30)
--- NOTE | 2019-11-22 15:00 | NUR ---
RN MS NOTES PATIENT DISCHARGE TO [facility] ALL DISCHARGE PAPERS TRANSFER TO [facility] PATIENT REFUESED TO SIGN D/C PAPER WORK CHARGE NURSE INFORMED . PATIENT NO COMPLAINS OF PAIN, NO SOB, NO ACUTE RESPIRATORY DISTRESS.
== END 2019-11-22 14:40 | DRG 643 ==
LOC: TELE-TD 21:27 → MEDSG1 11-21 13:42
PROVIDERS: ADMIT Nurse Practitioner Acute Care; ATTEND Nurse Practitioner Acute Care
DX: E22.2 Syndrome of inappropriate secretion of antidiuretic hormone (principal); G93.41 Metabolic encephalopathy; Z68.41 Body mass index [BMI] 40.0-44.9, adult; F11.20 Opioid dependence, uncomplicated; J44.1 Chronic obstructive pulmonary disease with (acute) exacerbation; I10 Essential (primary) hypertension; F32.9 Major depressive disorder, single episode, unspecified; G47.00 Insomnia, unspecified; F17.210 Nicotine dependence, cigarettes, uncomplicated; E87.8 Other disorders of electrolyte and fluid balance, not elsewhere classified; E78.5 Hyperlipidemia, unspecified; E03.9 Hypothyroidism, unspecified; F41.9 Anxiety disorder, unspecified; F25.9 Schizoaffective disorder, unspecified; M19.90 Unspecified osteoarthritis, unspecified site; G89.29 Other chronic pain; M54.5 Low back pain; Z88.2 Allergy status to sulfonamides; F29 Unspecified psychosis not due to a substance or known physiological condition; E66.01 Morbid (severe) obesity due to excess calories; T42.1X5A Adverse effect of iminostilbenes, initial encounter; Y92.89 Other specified places as the place of occurrence of the external cause
CPT/HCPCS: 36415; 80048-TC; 80053-TC; 80061-TC; 80156-TC; 82570-TC; 83735-TC; 83935-TC; 84100-TC; 84155-TC; 84300-TC; 84443-TC; 84484-TC; 84550-TC; 85025-TC; G0378; J3475; J3490; J7030; Q0161

== ENCOUNTER 2019-11-22 14:03 | Inpatient (IN) | payer MEDICARE, OTHER ==
[~2019-11-22] VITALS: Ht 160 cm; Wt 109.3 kg
[~2019-11-22 14:03] MED LIST changes: +ACET-868 PO; +ALBU2.5V38 IH; +CARB200T PO; +CLON0.5T4 PO; -DIVA500T4 PO; +GUAI100S11 PO; +HYDR-3895 PO; -LORA-259 PO; +MAG30ORA PO; +MAGN400O6 PO; +ONDA4TAB5 PO
--- NOTE | 2019-11-22 14:45 | NUR ---
DIE FINISHER NOTE- 54 Y/O FEMALE ADMITTED FROM [facility] RM 105 FOR DEPRESSION AND PSYCHOSIS. PT IS FULL CODE AND A PT OF DR COLORADO. SHE'S ALLERGIC TO SULFA DRUGS AND QUETIAPINE. PT HAVING SUICIDAL THOUGHTS THOUGH CURRENTLY DENIES SI HI AH VH ON FACE TO FACE ASSESSMENT-VS- B/P- 120/62, HR- 80, RR- 18, TEMP- 97.9, SATURATION 97%RA. PT IS ON REGULAR DIET, SKIN INTACT, MILD EDEMA TO LEFT ELBOW AND A BRUISE TO RFA. PHOTOGRAPH TAKEN PLACED IN CHART. PT IS ALERT, ORIENTED TO PERSON, PACE THOUGH CONFUSED ABOUT TIME AND HER PURPOSE HERE. STATES SHES "HERE BECAUSE IM IN PAIN." PT HAS VARIED PMHX- HTN, HYPOTHYROIDISM, SOB/COPD, ASTHMA, HYPONATREMIA AND SEVERAL PSYCHIATRIC ADMISSIONS. PT IS A SMOKER AND HAS DOCUMENTED ETOH USE IN PAST THOUGH CLAIMS TO ABSTAINING FROM ETOH AT PRESENT. PT IS AMBULATORY,THOUGH WEAK, USES [facility] FOR MOBILITY. DR COLORADO AWARE OF ADMISSION, PRODUCTION RECORDER TOBAR NOTIFIED OF ADMISSION AND ASKED TO RECONCILE MEDS. PT RIGHTS DISCUSSED AND EXPLAINED, BOOKLET GIVEN AND VERBALIZED UNDERSTANDING. RESPONSIBLE LIBERTARIAN MADE AWARE OF ADMISSION.
[2019-11-22] MEDS ORDERED: ACETAMINOPHEN 325 MG TABLET PO PRN ×2 (15:00→22:00)
[2019-11-22] MEDS ORDERED: MAG HYDROX/AL HYDROX/SIMETH 30 ML UDC PO PRN ×2 (15:00→22:00)
[2019-11-22] MEDS ORDERED: BLOOD SUGAR DIAGNOSTIC 1 EACH STRIP IN ONE (15:00)
[2019-11-22] MEDS ORDERED: MAGNESIUM HYDROXIDE 30 ML UDC PO PRN (15:00)
[2019-11-22 16:00] VITALS: BP 106/56
[2019-11-22] MEDS: LORAZEPAM 0.5 MG TABLET PO PRN (17:11)
--- NOTE | 2019-11-22 17:12 | NUR ---
RN NOTE- PT ASKING FOR MEDS FOR ANXIETY, GAS PAINS/DISPEPSIA AND HEADACHE. MAALOX 30ML, TYLENOL 650 MG AND ATIVAN 1 MG GIVEN AT THIS TIME. MED RECONCILIATION PENDING W ASMITA TOBAR.
--- NOTE | 2019-11-22 18:17 | NUR ---
RN NOTE- MRSA SWAB DONE BILATERAL NARES. CALLED LAB
[2019-11-22] MEDS ORDERED: clonazePAM 0.5 MG TABLET PO PRN (18:30)
--- NOTE | 2019-11-22 18:44 | NUR ---
RN-CO: AUGUSTO TOBAR TUMBLER TENDER CALLED BACK AND WAS ASKED TO RECONCILE MEDICATIONS .
[2019-11-22 20:03] VITALS: BP 105/64
[2019-11-22] MEDS: TEMAZEPAM 7.5 MG CAPSULE PO PRN (21:44)
[2019-11-22] MEDS ORDERED: hydrOXYzine PAMOATE 25 MG CAPSULE PO PRN (22:00)
[2019-11-22] MEDS: ATORVASTATIN 10 MG TABLET PO SCH (22:31)
[2019-11-23] MEDS: oxyCODONE/APAP (5/325 MG) 1 UDTAB TABLET PO PRN ×3 (00:56→17:35)
[2019-11-23] MEDS: ALBUTEROL FS 2.5 MG/3 ML VIAL.NEB IH PRN ×3 (02:03→20:13)
[2019-11-23] MEDS: LORAZEPAM 0.5 MG TABLET PO PRN ×3 (02:45→21:09)
[2019-11-23] MEDS: LEVOTHYROXINE SODIUM 125 MCG TABLET PO SCH (07:15)
--- NOTE | 2019-11-23 07:25 | NUR ---
RN NOTE-PT ANXIOUS AND AGITATED. ATIVAN 1 MG GIVEN
[2019-11-23 08:00] VITALS: BP 114/88
[2019-11-23] MEDS: clonazePAM 0.5 MG TABLET PO SCH ×3 (08:20→16:35)
[2019-11-23] MEDS: CARBAMAZEPINE 200 MG TABLET PO SCH ×2 (08:20→12:29)
[2019-11-23] MEDS: chlorproMAZINE HCL 25 MG TABLET PO SCH ×3 (08:20→16:36)
[2019-11-23] MEDS: ARIPIPRAZOLE 5 MG TABLET PO SCH ×2 (08:20→16:36)
[2019-11-23] MEDS: LISINOPRIL (10MG) 10 MG TABLET PO SCH (08:22)
[2019-11-23] MEDS: SODIUM CHLORIDE 1000 MG TABLET PO SCH (08:29)
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
[2019-11-23 08:59] LABS: ALBUMIN 3.8 g/dL (3.4-5.0); BILIRUBIN,TOTAL 0.2 mg/dL (0.2-1.0); CALCIUM, SERUM 9.5 mg/dL (8.5-10.1); CREATININE 0.7 mg/dL (0.6-1.3); POTASSIUM 4.5 mmol/L (3.5-5.1); TOTAL PROTEIN, SERUM 7.5 g/dL (6.4-8.2)
[2019-11-23] MEDS ORDERED: CARBAMAZEPINE 200 MG TABLET PO SCH (09:00)
--- NOTE | 2019-11-23 12:32 | NUR ---
RN NOTE- PT C/O HEADACHE. TYLENOL 650 MG GIVEN
[2019-11-23 16:00] VITALS: BP 133/62
[2019-11-23 20:04] VITALS: BP 115/74
[2019-11-23] MEDS: MAGNESIUM HYDROXIDE 30 ML UDC PO PRN (21:00)
[2019-11-23] MEDS: ATORVASTATIN 10 MG TABLET PO SCH (21:10)
[2019-11-23] MEDS: TEMAZEPAM 7.5 MG CAPSULE PO PRN (22:14)
[2019-11-24] MEDS: oxyCODONE/APAP (5/325 MG) 1 UDTAB TABLET PO PRN ×2 (01:53→09:53)
[2019-11-24] MEDS: ALBUTEROL FS 2.5 MG/3 ML VIAL.NEB IH PRN ×3 (02:13→20:55)
[2019-11-24] MEDS: LORAZEPAM 0.5 MG TABLET PO PRN ×3 (02:45→21:20)
[2019-11-24 06:37] LABS: BASOPHILS # (AUTO) 0.1 /CMM (0.0-0.2); BASOPHILS % (AUTO) 1.1 % (0.0-2.0); EOSINOPHILS % (AUTO) 2.8 % (0.0-6.0); HEMATOCRIT 35 % (33-45); HEMOGLOBIN 11.6 g/dL (11.5-14.8); LYMPHOCYTES # (AUTO) 1.8 /CMM (0.8-4.8); LYMPHOCYTES % (AUTO) 28.6 % (20.0-44.0); MEAN CORPUSCULAR HGB CONC 33 g/dl (31.0-36.0); MEAN CORPUSCULAR VOLUME 89 fL (82-100); MONOCYTES # (AUTO) 0.6 /CMM (0.1-1.30); MONOCYTES % (AUTO) 8.9 % (2.0-12.0); NEUTROPHILS # (AUTO) 3.7 /CMM (1.8-8.9); NEUTROPHILS % (AUTO) 58.6 % (43.0-81.0); PLATELET COUNT (AUTO) 360 /CMM (150-450); RED BLOOD CELL COUNT(AUTO) 3.91 MIL/uL (4.0-5.2); WHITE BLOOD COUNT (AUTO) 6.3 K/uL (4.3-11.0)
[2019-11-24 06:48] LABS: CALCIUM, SERUM 9.1 mg/dL (8.5-10.1); CREATININE 0.6 mg/dL (0.6-1.3); POTASSIUM 4.4 mmol/L (3.5-5.1)
[2019-11-24] MEDS: SODIUM CHLORIDE 1000 MG TABLET PO SCH (07:56)
[2019-11-24] MEDS: ARIPIPRAZOLE 5 MG TABLET PO SCH ×2 (07:56→17:02)
[2019-11-24] MEDS: LEVOTHYROXINE SODIUM 125 MCG TABLET PO SCH (07:57)
[2019-11-24] MEDS: chlorproMAZINE HCL 25 MG TABLET PO SCH ×3 (07:58→17:02)
[2019-11-24] MEDS: CARBAMAZEPINE 200 MG TABLET PO SCH ×2 (07:58→13:32)
[2019-11-24 08:00] VITALS: BP 133/95
[2019-11-24] MEDS: LISINOPRIL (10MG) 10 MG TABLET PO SCH (08:02)
[2019-11-24] MEDS: clonazePAM 0.5 MG TABLET PO SCH ×3 (08:15→17:58)
[2019-11-24] MEDS: NICOTINE PATCH (21MG) 21 MG PATCH.TD24 TD SCH (09:53)
--- NOTE | 2019-11-24 09:53 | NUR ---
RN NOTES ADMINISTERED PERCOCET 5.325 MG PO PRN FOR GENERALIZED PAIN / PER PATIENT REQUEST, V/S TAKEN BP-133/95, P-85, CONTINUED MONITORING.
[2019-11-24] MEDS: GUAIFENESIN 300 MG/15 ML UDC PO PRN (13:32)
--- NOTE | 2019-11-24 13:33 | NUR ---
rn notes Administered Guaifenesin 15 ml po prn for cough per patient request.
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
[2019-11-24] MEDS ORDERED: LORAZEPAM INJ 2 MG/ML VIAL IM ONE (14:00)
--- NOTE | 2019-11-24 14:08 | NUR ---
Facility Contact: THANH faxed updated notes to [facility] with attn to M[place] to the fax number: [phone].
--- NOTE | 2019-11-24 14:09 | NUR ---
Individual Intervention with the Pt: SW expressed to the pt that her behavior with the other staff members is not considered appropriate and informed her that if she keeps misbehaving and acting out then she will not be deemed ready for discharge. Pt stated that she did not care and continued to curse at the staff. SW will inform the MD about the pts behaviors.
--- NOTE | 2019-11-24 15:05 | NUR ---
rn notes administered ativan 1 mg po prn for anxiety per parent request v/s taken bp-130/93, p-85, continued monitoring.
--- NOTE | 2019-11-24 15:11 | NUR ---
Group Note: SW encouraged pt to participate in group on 11/24/19 at 2pm discussing suicidal urges. Pt refused to participate in group because she wanted to remain in the hallway where she can "keep an eye on the QUIRK SANDER" so the SW asked the pt to speak to this topic one on one. Pt stated that she wants to go back to [facility] because she felt more free there and had friends. Pt stated that being at this facility has been depressing for her. Pt stated that she has been through many events in her life that have made her want to end it at times. Pt became emotional when speaking about her children and how they are not involved in her life anymore.
[2019-11-24 16:00] VITALS: BP 121/68
[2019-11-24] MEDS: oxyCODONE IR immediate release 5 MG PO PRN (17:07)
--- NOTE | 2019-11-24 17:07 | NUR ---
RN NOTES ADMINISTERED OXY IR 10 MG PO PRN FOR GENERALIZED PAIN 08/04 PER PATIENT REQUEST V/S TAKEN BP-121/68, P-93 CONTINUED MONITORING.
[2019-11-24] MEDS: GABAPENTIN 300 MG CAPSULE PO SCH (17:58)
[2019-11-24 20:08] VITALS: BP 142/83
[2019-11-24 20:14] VITALS: BP 142/83
[2019-11-24] MEDS: ATORVASTATIN 10 MG TABLET PO SCH (21:20)
[2019-11-24] MEDS: TEMAZEPAM 7.5 MG CAPSULE PO PRN (21:52)
[2019-11-25] MEDS: oxyCODONE IR immediate release 5 MG PO PRN ×2 (03:01→20:47)
[2019-11-25] MEDS: ALBUTEROL FS 2.5 MG/3 ML VIAL.NEB IH PRN ×2 (03:37→16:58)
[2019-11-25] MEDS: LORAZEPAM 0.5 MG TABLET PO PRN ×2 (04:12→10:42)
[2019-11-25] MEDS: GUAIFENESIN 300 MG/15 ML UDC PO PRN ×2 (04:13→15:05)
--- NOTE | 2019-11-25 04:13 | NUR ---
RN NOTE ADMINISTERED OXYCODONE 5MG 2 TABS PO FOR GENERALIZED PAIN 07/05. REASSESSED PT AT 0405 PT REPORTED PAIN LEVEL OF 2/10. WILL CONTINUE TO MONITOR.
--- NOTE | 2019-11-25 04:16 | NUR ---
RN NOTE PT COMPLAINED OF ANXIETY LEVEL OF 7/10, AND COUGH. ATIVAN 0.5MG 2 TABS AND ROBITUSSIN GIVEN PO AT 0416. WILL CONTINUE TO MONITOR.
[2019-11-25] MEDS: LEVOTHYROXINE SODIUM 125 MCG TABLET PO SCH (07:43)
[2019-11-25 08:00] VITALS: BP 125/64
[2019-11-25] MEDS: SODIUM CHLORIDE 1000 MG TABLET PO SCH (08:23)
[2019-11-25] MEDS: ARIPIPRAZOLE 5 MG TABLET PO SCH ×2 (08:23→16:17)
[2019-11-25] MEDS: chlorproMAZINE HCL 25 MG TABLET PO SCH ×3 (08:24→16:17)
[2019-11-25] MEDS: CARBAMAZEPINE 200 MG TABLET PO SCH ×2 (08:24→12:24)
[2019-11-25] MEDS: LISINOPRIL (10MG) 10 MG TABLET PO SCH (08:24)
[2019-11-25] MEDS: clonazePAM 0.5 MG TABLET PO SCH ×3 (08:24→16:17)
[2019-11-25] MEDS: GABAPENTIN 300 MG CAPSULE PO SCH ×3 (08:24→16:17)
[2019-11-25] MEDS: NICOTINE PATCH (21MG) 21 MG PATCH.TD24 TD SCH (08:24)
--- NOTE | 2019-11-25 10:09 | NUR ---
Family Contact: SW called the pts sister, Toshia ([phone]), and informed her that the pt is going to be returning to [facility] today.
--- NOTE | 2019-11-25 10:53 | NUR ---
DR. COLORADO GAVE AN ORDER TO D/C HOLD AND D/C TO [facility], TO CONTINUE SAME MEDS INCLUDING PRN AND TO FOLLOW UP WITH PSYCH AND MEDICAL DOCTORS. PT. WITHOUT DISTRESS, DENIES SUICIDAL AND HOMICIDAL. Addendum: 11/25/19 at 1322 by JIA HUBER RN PT. IS FOR DISCHARGE TO [facility] AND NOT [facility].
--- NOTE | 2019-11-25 11:07 | NUR ---
Facility Contact: Faisal ([phone]) from [facility] came to assess the pt and stated that he would take the information back to his facility and speak to the administrators and call the SW back. He called the SW back and stated that the MD from the facility put in a telephone order not to admit the pt back. SW stated that she will seek alternative placement for the pt.
--- NOTE | 2019-11-25 11:08 | NUR ---
Family Contact: SW called the pts sister, Toshia ([phone]), and informed her that the pt is not being accepted back to [facility] and so the SW will seek alternative SNF placement for her. SW stated that she will call her back with the updated facility.
--- NOTE | 2019-11-25 11:09 | NUR ---
SNF Referral: THANH faxed a referral to [facility] with attn to Justen and MARCY to the fax number: [phone].
--- NOTE | 2019-11-25 12:20 | NUR ---
SNF Contact: Jerrod ([phone]) from [facility] called the SW and stated that the pt was accepted to their facility.
--- NOTE | 2019-11-25 13:15 | NUR ---
Family Contact: THANH called the pts sister, Toshia ([phone]), and informed her that the pt will be going to [facility] today and provided her with the information of the facility.
--- NOTE | 2019-11-25 13:21 | NUR ---
Discharge Note: Pt was discharged to [facility] ([facility]) located at [address] [place] [address]; ([phone]). Pt was transported via [facility] at 3PM. Pts sister, Toshia ([phone]), was made aware. Upon discharge, pt appeared to be in a euthymic mood and presented with a distressed affect. Pt appeared to be alert and oriented x4 (time, place, self and situation). Pt denied both suicidal and homicidal ideation as well as auditory and visual hallucinations. Pt will be under the care of psychiatrist, Dr. Shook, located at [address], [place] [address]; and her shingler, Dr. Barbour, located at [address], [place] [address]; .
--- NOTE | 2019-11-25 14:48 | NUR ---
Discharge Note: Pts discharge got cancelled because the facility DON stated that the pt was not a good fir for their facility. Justen ([phone]) from [facility] stated that the DON for [facility] will assess the pt on Thursday.
--- NOTE | 2019-11-25 14:50 | NUR ---
Family Contact: SW called the pts sister, Toshia ([phone]), and informed her that the pts discharge was postponed to Thursday.
--- NOTE | 2019-11-25 15:16 | NUR ---
DR. COLORADO RESCINDED THE DISCHARGE ORDER. [facility] AND [facility] ARE NOT ACCEPTING THE PT.
[2019-11-25 16:00] VITALS: BP 118/75
--- NOTE | 2019-11-25 19:10 | NUR ---
GPS RN NOTES RECEIVED PT IN BED AWAKE, NO S/S OR COMPLAINTS OF PAIN AT THIS TIME. PT IS DISPLAYING NO S/S OF APPARENT DISTRESS AT THIS TIME. PT BREATHING IS UNLABORED WITH EQUAL RISE AND FALL OF THE CHEST. PT A/O X2-3 ON ROOM AIR SATING 97%. PT COMPLIANT WITH MEDICATION, DISORGANIZED, RESPONDING TO INTERNAL STIMULI, ANXIOUS, AND COOPERATIVE. PT DENIES SUICIDE IDEATIONS AND HOMICIDAL IDEATIONS AT THIS TIME. PT ASSISTED WITH TURNING AND REPOSITIONING Q2 HR AND PRN FOR COMFORT AND CIRCULATION. PT HAS NO NEEDS AT THIS TIME. PT EDUCATED ON THE USE OF THE CALL EMERSON. PT BED SIDE RAILS UP X2 FOR SAFETY, BED IS LOCKED AND LOW. WILL CONTINUE TO MONITOR Q15 MIN WITH THE HELP OF STAFF TO MAINTAIN SAFETY.
--- NOTE | 2019-11-25 19:50 | NUR ---
GPS RN NOTES PT COMPLAINED OF CONSTIPATION, MOM GIVEN. WILL CONTINUE TO MONITOR.
[2019-11-25] MEDS: MAGNESIUM HYDROXIDE 30 ML UDC PO PRN (19:53)
[2019-11-25 20:00] VITALS: BP 134/74
--- NOTE | 2019-11-25 20:51 | NUR ---
GPS RN NOTES PT COMPLAIN OF PAIN 9/10 IN BACK. OXY IR GIVEN. WILL CONTINUE TO MONITOR.
[2019-11-25] MEDS: ATORVASTATIN 10 MG TABLET PO SCH (21:05)
[2019-11-25] MEDS: TEMAZEPAM 7.5 MG CAPSULE PO PRN (22:38)
[2019-11-26] MEDS: LORAZEPAM 0.5 MG TABLET PO PRN ×3 (01:23→15:11)
[2019-11-26] MEDS: oxyCODONE IR immediate release 5 MG PO PRN ×4 (02:59→23:53)
[2019-11-26] MEDS: ALBUTEROL FS 2.5 MG/3 ML VIAL.NEB IH PRN ×2 (03:27→10:02)
[2019-11-26 08:00] VITALS: BP 147/71
[2019-11-26] MEDS: LEVOTHYROXINE SODIUM 125 MCG TABLET PO SCH (08:15)
[2019-11-26] MEDS: ARIPIPRAZOLE 5 MG TABLET PO SCH ×2 (08:48→16:15)
[2019-11-26] MEDS: NICOTINE PATCH (21MG) 21 MG PATCH.TD24 TD SCH (08:48)
[2019-11-26] MEDS: CARBAMAZEPINE 200 MG TABLET PO SCH ×2 (08:48→12:09)
[2019-11-26] MEDS: chlorproMAZINE HCL 25 MG TABLET PO SCH ×3 (08:48→16:15)
[2019-11-26] MEDS: clonazePAM 0.5 MG TABLET PO SCH ×3 (08:48→16:15)
[2019-11-26] MEDS: GABAPENTIN 300 MG CAPSULE PO SCH ×3 (08:48→16:16)
[2019-11-26] MEDS: SODIUM CHLORIDE 1000 MG TABLET PO SCH (08:48)
[2019-11-26] MEDS: LISINOPRIL (10MG) 10 MG TABLET PO SCH (08:49)
[2019-11-26] MEDS: GUAIFENESIN 300 MG/15 ML UDC PO PRN ×2 (08:49→16:15)
[2019-11-26] MEDS: IPRATROPIUM NEB FS 0.5 MG/2.5 ML AMPUL.NEB NEB SCH ×3 (10:02→19:30)
[2019-11-26 16:00] VITALS: BP 146/95
[2019-11-26] MEDS: OXYBUTYNIN CHLORIDE 5 MG TABLET PO SCH (16:16)
[2019-11-26 19:56] VITALS: BP 120/57
[2019-11-26] MEDS: ATORVASTATIN 10 MG TABLET PO SCH (21:20)
--- NOTE | 2019-11-26 21:41 | NUR ---
GPS RN NOTES: PER PATIENT REQUEST FOR LOZENGE FOR SORE THROAT. NOTIFIED RN SOCIAL WORK MD DR BEJARANO. DR BEJARANO CALLED BACK WITH ORDERS 1 LOZENGE PO Q6HRS PRN FOR SORE THROAT. ORDERS NOTED AND CARRIED OUT. CONTINUE TO MONITOR.
--- NOTE | 2019-11-26 23:57 | NUR ---
GPS RN NOTES: UPON DOING ROUNDS, PT YELLING AND SCREAMING. PT C/O OF 9 OUT OF 10 PAIN AROUND HER LOWER BACK. PT REQUESTED PAIN MEDICATION. OFFERED OXY 10MG PO PRN ORDERED. PT AGREED AND TOLERATED MEDICATION WELL. CONTINUE TO MONITOR.
[2019-11-27] MEDS: TEMAZEPAM 7.5 MG CAPSULE PO PRN ×2 (01:18→22:38)
--- NOTE | 2019-11-27 01:25 | NUR ---
PT UNABLE TO SLEEP. OFFERED RESTORIL 15MG PO PRN ORDERED. PT AGREED AND TOLERATED MEDICATION WELL. CONTINUE TO MONITOR.
[2019-11-27] MEDS: IPRATROPIUM NEB FS 0.5 MG/2.5 ML AMPUL.NEB NEB SCH ×4 (01:30→20:09)
[2019-11-27] MEDS: MAGNESIUM HYDROXIDE 30 ML UDC PO PRN (02:55)
--- NOTE | 2019-11-27 02:59 | NUR ---
GPS RN NOTES: PT C/O FEELING CONSTIPATED. PT REQUESTED MOM. OFFERED MOM 30ML PRN ORDERED. PT AGREED. CONTINUE TO MONITOR.
[2019-11-27] MEDS: LORAZEPAM 0.5 MG TABLET PO PRN ×3 (06:34→15:17)
--- NOTE | 2019-11-27 06:38 | NUR ---
GPS RN NOTES: PT C/O OF FEELING ANXIOUS. PT STATED, "I NEED TO CALM DOWN." OFFERED ATIVAN 1MG PO PRN ORDERED. PT AGREED AND TOLERATED MEDICATION WELL. CONTINUE TO MONITOR.
[2019-11-27] MEDS: oxyCODONE IR immediate release 5 MG PO PRN ×3 (07:31→20:21)
--- NOTE | 2019-11-27 07:32 | NUR ---
GPS RN NOTES: PT YELLING AND SCREAMING. PT C/O OF 9 OUT OF 10 PAIN LOWER BACK. PT REQUESTED PAIN MEDICATION. OFFERED OXY 10MG PO PRN ORDERED. WELL. CONTINUE TO MONITOR.
[2019-11-27] MEDS: ARIPIPRAZOLE 5 MG TABLET PO SCH ×2 (08:15→16:24)
[2019-11-27] MEDS: SODIUM CHLORIDE 1000 MG TABLET PO SCH (08:15)
[2019-11-27] MEDS: clonazePAM 0.5 MG TABLET PO SCH ×3 (08:15→16:24)
[2019-11-27] MEDS: OXYBUTYNIN CHLORIDE 5 MG TABLET PO SCH ×2 (08:15→16:24)
[2019-11-27] MEDS: NICOTINE PATCH (21MG) 21 MG PATCH.TD24 TD SCH (08:16)
[2019-11-27] MEDS: chlorproMAZINE HCL 25 MG TABLET PO SCH ×3 (08:16→16:24)
[2019-11-27] MEDS: CARBAMAZEPINE 200 MG TABLET PO SCH ×2 (08:16→12:14)
[2019-11-27] MEDS: LISINOPRIL (10MG) 10 MG TABLET PO SCH (08:17)
[2019-11-27] MEDS: LEVOTHYROXINE SODIUM 125 MCG TABLET PO SCH (08:32)
[2019-11-27] MEDS: GABAPENTIN 300 MG CAPSULE PO SCH ×3 (08:32→16:24)
--- NOTE | 2019-11-27 10:21 | NUR ---
RN-CO: Patient is banging the glass windows, screaming at the staff, non redirectable. PRN for anti anxiety/anti agitation is not working.
--- NOTE | 2019-11-27 10:29 | NUR ---
RN-CO: THORAZINE [address] PER [address] COLORADO'S ORDER.
--- NOTE | 2019-11-27 10:35 | NUR ---
GPS RN NOTES: PT ANXIOUS YELLING SCREAMING ATIVAN 1MG PO PRN GIVEN ORDERED. PT AGREED AND TOLERATED MEDICATION WELL. CONTINUE TO MONITOR.
--- NOTE | 2019-11-27 10:42 | NUR ---
RN-CO: Paged Dr Sifuentes again and to remind him that she is already on Thorazine 100 mg TID.
[2019-11-27] MEDS: GUAIFENESIN 300 MG/15 ML UDC PO PRN (11:00)
[2019-11-27] MEDS: MENTHOL/CETYLPYRD (CEPACOL) 1 LOZ LOZENGE PO PRN (11:00)
--- NOTE | 2019-11-27 11:00 | NUR ---
RN-CO: Patient noted sleeping even without Thorazine shot. Also pharmacist called and informed the unit that they don not have Thorazine IM.
[2019-11-27] MEDS ORDERED: IPRATROPIUM NEB FS 0.5 MG/2.5 ML AMPUL.NEB ONE (14:06)
--- NOTE | 2019-11-27 14:32 | NUR ---
RN-CO: Patient has on and off yelling and being verbally abusive to staff. Patient calling RNs "bitch". Hard to redirect,very poor impulse control, entitled. Don't listen to directions.
--- NOTE | 2019-11-27 15:38 | NUR ---
GPS RN NOTES: PT ARGUMENTATIVE AND ANXIOUS ATIVAN 1MG PO PRN GIVEN ORDERED. VSS CONTINUE TO MONITOR.
[2019-11-27 16:00] VITALS: BP 153/69
[2019-11-27 19:43] VITALS: BP 102/67
[2019-11-27] MEDS: ALBUTEROL FS 2.5 MG/3 ML VIAL.NEB IH PRN (20:08)
[2019-11-27 20:15] VITALS: BP 113/68
--- NOTE | 2019-11-27 20:31 | NUR ---
GPS RN NOTES: UPON DOING ROUNDS, PT MOANING. PT C/O OF 9 OUT OF 10 PAIN ON BOTH LEGS. PT REQUESTED PAIN MEDICATION. VITALS WNL. OFFERED OXY 10MG PO PRN ORDERED. PT AGREED AND TOLERATED MEDICATION WELL. CONTINUE TO MONITOR.
[2019-11-27] MEDS: ATORVASTATIN 10 MG TABLET PO SCH (21:28)
--- NOTE | 2019-11-27 22:40 | NUR ---
GPS RN NOTES: PT UNABLE TO SLEEP. PT STATED, "I NEED TO SLEEP. GIVE ME RESTORIL." OFFERED RESTORIL 15MG PO PRN ORDERED. PT AGREED AND TOLERATED MEDICATION WELL. CONTINUE TO MONITOR.
[2019-11-28] MEDS: MAGNESIUM HYDROXIDE 30 ML UDC PO PRN (00:15)
--- NOTE | 2019-11-28 00:18 | NUR ---
GPS RN NOTES: PT C/O FEELING CONSTIPATED. PT REQUESTED MOM. OFFERED MOM 30ML PRN ORDERED. PT AGREED. CONTINUE TO MONITOR.
[2019-11-28] MEDS: IPRATROPIUM NEB FS 0.5 MG/2.5 ML AMPUL.NEB NEB SCH ×3 (01:30→13:41)
[2019-11-28 02:48] VITALS: BP 143/78
[2019-11-28] MEDS: oxyCODONE IR immediate release 5 MG PO PRN ×3 (02:50→15:18)
--- NOTE | 2019-11-28 02:55 | NUR ---
GPS RN NOTES: UPON DOING ROUNDS, PT MOANING, SCREAMING, AND CRYING. PT C/O OF 9 OUT OF 10 PAIN ON BOTH LEGS. PT REQUESTED PAIN MEDICATION. VITALS WNL. OFFERED OXY 10MG PO PRN ORDERED. PT AGREED AND TOLERATED MEDICATION WELL. CONTINUE TO MONITOR.
--- NOTE | 2019-11-28 03:02 | NUR ---
GPS RN NOTES: PER PATIENT REQUEST, PT WANTS TO SIT ON CALLUM CHAIR. PT DOES NOT WANT TO SIT IN HER ROOM. PT SAT HERSELF AT THE CALLUM CHAIR. CONTINUE TO MONITOR PT FOR SAFETY.
[2019-11-28 05:05] VITALS: BP 141/69
[2019-11-28] MEDS: LORAZEPAM 0.5 MG TABLET PO PRN ×2 (05:08→11:07)
--- NOTE | 2019-11-28 05:11 | NUR ---
GPS RN NOTES: UPON DOING ROUNDS PT YELLING. PT IS ANXIOUS. PT STATED, "IM ANXIOUS! GIVE ME MY ATIVAN NOW!" CHECKED PT VITALS WNL. OFFERED ATIVAN 1MG PO PRN ORDERED. PT TOLERATED MEDICATION WELL. CONTINUE TO MONITOR.
--- NOTE | 2019-11-28 05:24 | NUR ---
GPS RN NOTES: KADEN SANCHEZ REPORTED TO THE NURSE: PT ASKED HIM IN A WHISPERED MANNER TO GO INTO THE MEDICATION ROOM AND GET 2 OXYCODONE FOR HER. ACCORDING TO THE PT, IT GIVES HER A "GOOD HIGH". CONTINUE TO MONITOR PT.
[2019-11-28] MEDS: LEVOTHYROXINE SODIUM 125 MCG TABLET PO SCH (07:29)
[2019-11-28 08:00] VITALS: BP 148/90
[2019-11-28 08:15] VITALS: BP 148/90
[2019-11-28] MEDS: LISINOPRIL (10MG) 10 MG TABLET PO SCH (08:15)
[2019-11-28] MEDS: CARBAMAZEPINE 200 MG TABLET PO SCH ×2 (08:15→12:20)
[2019-11-28] MEDS: ARIPIPRAZOLE 5 MG TABLET PO SCH (08:15)
[2019-11-28] MEDS: clonazePAM 0.5 MG TABLET PO SCH ×2 (08:15→12:22)
[2019-11-28] MEDS: NICOTINE PATCH (21MG) 21 MG PATCH.TD24 TD SCH (08:15)
[2019-11-28] MEDS: OXYBUTYNIN CHLORIDE 5 MG TABLET PO SCH (08:15)
[2019-11-28] MEDS: GABAPENTIN 300 MG CAPSULE PO SCH ×2 (08:15→12:19)
[2019-11-28] MEDS: chlorproMAZINE HCL 25 MG TABLET PO SCH ×2 (08:15→12:19)
[2019-11-28] MEDS: SODIUM CHLORIDE 1000 MG TABLET PO SCH (08:24)
--- NOTE | 2019-11-28 10:00 | NUR ---
RN-CO: Patient called 911 for no reason, consistently threatening staff that if she don't get want she wants right away she will call 911 or police. DON was able to talk to [employer] operator and explained that there is no emergency.
--- NOTE | 2019-11-28 11:07 | NUR ---
RN NOTE- PT LOUD, AGGRESSIVE VERBALLY W STAFF... ANXIOUSNESS. ATIVAN 1 MG GIVEN
[2019-11-28] MEDS: MENTHOL/CETYLPYRD (CEPACOL) 1 LOZ LOZENGE PO PRN (11:38)
[2019-11-28] MEDS: GUAIFENESIN 300 MG/15 ML UDC PO PRN (11:38)
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
--- NOTE | 2019-11-28 14:00 | NUR ---
Family Contact: SW called the pts sister, Toshia ([phone]), and informed her that the pt is being discharged back to [facility].
[2019-11-28] MEDS: ALBUTEROL FS 2.5 MG/3 ML VIAL.NEB IH PRN (14:07)
--- NOTE | 2019-11-28 14:10 | NUR ---
SNF Contact: SW contacted Mone ([phone]) from [facility] and informed her that the SW will be sending the pt back because the pt is refusing to go elsewhere and the pt cannot be dumped.
--- NOTE | 2019-11-28 15:26 | NUR ---
RN NOTE/ DC NOTE- PT DC TO [facility] AT THIS TIME VIA GURNEY AND AMBULANCE. PT ALERT ORIENTED TO PERSON PLACE TIME. DENIES SI HI AH VH AT TIME OF DC. VS ARE STABLE. PT DC INSTRUCTIONS REVIEWED W VERBALIZED UNDERSTANDING STATED. VALUABLES GIVEN TO PT AND SIGNED FOR. ID [id number] REMOVED AND PT ESCORTED OUT OF UNIT BY STAFF
--- NOTE | 2019-11-28 16:26 | NUR ---
Discharge Note: Pt was discharged to [facility] ([facility]) located at [address] [place] [address] ([phone]). Pt will be transported via [facility] at 2:45pm. Pts sister, Toshia ([phone]), was made aware of the placement. Upon discharge, the pt appeared to be in a euthymic mood and presented with an agitated and irritable affect. Pt denied both suicidal and homicidal ideation as well as auditory and visual hallucinations. Pt signed the Choice of Vendor form and stated that she wanted to return to this facility as it was her previous facility. The patient will be under the care of psychiatrist, Dr. Campbell, who is located at [address] [place] [address]; ) and food checker, Dr. Arthur, who is located at [address] [place] [address]; .
[2019-11-28] MEDS ORDERED: LISINOPRIL (10MG) 10 MG TABLET PO SCH (17:00)
== END 2019-11-28 15:20 | DRG 885 ==
LOC: GPS 14:03
PROVIDERS: ADMIT Psychiatry & Neurology Psychiatry; ATTEND Internal Medicine
DX: F31.64 Bipolar disorder, current episode mixed, severe, with psychotic features (principal); F11.20 Opioid dependence, uncomplicated; E87.1 Hypo-osmolality and hyponatremia; Z68.41 Body mass index [BMI] 40.0-44.9, adult; D68.59 Other primary thrombophilia; E78.5 Hyperlipidemia, unspecified; E03.9 Hypothyroidism, unspecified; F17.210 Nicotine dependence, cigarettes, uncomplicated; I10 Essential (primary) hypertension; J43.9 Emphysema, unspecified; F41.9 Anxiety disorder, unspecified; M54.9 Dorsalgia, unspecified; E66.01 Morbid (severe) obesity due to excess calories; M19.90 Unspecified osteoarthritis, unspecified site; G47.00 Insomnia, unspecified; Z88.2 Allergy status to sulfonamides; M47.816 Spondylosis without myelopathy or radiculopathy, lumbar region; G89.4 Chronic pain syndrome; F14.90 Cocaine use, unspecified, uncomplicated
CPT/HCPCS: 36415; 71045-TC; 80048-TC; 80053-TC; 80061-TC; 80076-TC; 80156-TC; 80305; 81000-TC; 85025-TC; 87081-TC; 97116-TC; 97530-TC; 97535-TC; G0480; J1200; J1630; J2060; J3230; Q0161; Q0162; Q0177

== ENCOUNTER 2022-07-10 20:39 | Emergency (ER) | payer MEDICARE, OTHER ==
[~2022-07-10] VITALS: Ht 162.6 cm; Wt 117.9 kg
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
[2022-07-10] MEDS ORDERED: KETOROLAC TROMETHAMINE 15 MG/ML VIAL ONE (22:18)
[2022-07-10] MEDS ORDERED: MORPHINE SULFATE INJ 4 MG/ML DISP.SYRIN ONE (22:19)
[2022-07-10] MEDS ORDERED: ONDANSETRON HCL/PF 4 MG/2 ML VIAL ONE (22:19)
--- NOTE | 2022-07-10 22:28 | NUR ---
BLOOD WORK COLLECTED SENT TO LAB
[2022-07-10] MEDS ORDERED: KETOROLAC TROMETHAMINE INJ 30 MG/ML VIAL IV ONE (22:30)
[2022-07-10] MEDS ORDERED: MORPHINE SULFATE INJ 2 MG/ML DISP.SYRIN IV ONE (22:30)
[2022-07-10] MEDS ORDERED: ONDANSETRON HCL/PF 4 MG/2 ML VIAL IVP ONE (22:30)
--- NOTE | 2022-07-10 22:37 | NUR ---
URINE COLLECTED SENT TO LAB
[2022-07-10 22:43] LABS: BASOPHILS # (AUTO) 0.1 K/uL (0.0-0.2); BASOPHILS % (AUTO) 0.9 % (0.0-2.0); EOSINOPHILS % (AUTO) 1.4 % (0.0-6.0); HEMATOCRIT 43 % (33-45); HEMOGLOBIN 14.3 g/dL (11.5-14.8); LYMPHOCYTES # (AUTO) 3.7 K/uL (0.8-4.8); LYMPHOCYTES % (AUTO) 35.8 % (20.0-44.0); MEAN CORPUSCULAR HGB CONC 33 g/dl (31.0-36.0); MEAN CORPUSCULAR VOLUME 89 fL (82-100); MONOCYTES # (AUTO) 0.9 K/uL (0.1-1.30); MONOCYTES % (AUTO) 8.9 % (2.0-12.0); NEUTROPHILS # (AUTO) 5.5 K/uL (1.8-8.9); PLATELET COUNT (AUTO) 271 K/uL (150-450); RED BLOOD CELL COUNT(AUTO) 4.82 MIL/uL (4.0-5.2); WHITE BLOOD COUNT (AUTO) 10.4 K/uL (4.3-11.0)
[2022-07-10 22:50] LABS: CALCIUM, SERUM 8.9 mg/dL (8.5-10.1); CREATININE 0.7 mg/dL (0.6-1.3); POTASSIUM 3.8 mmol/L (3.5-5.1)
[2022-07-10 22:56] LABS: ALBUMIN 3.4 g/dL (3.4-5.0); BILIRUBIN,DIRECT 0.1 mg/dL (0.0-0.2); BILIRUBIN,TOTAL 0.3 mg/dL (0.2-1.0); TOTAL PROTEIN, SERUM 7.6 g/dL (6.4-8.2)
[2022-07-11 00:21] LABS: BILIRUBIN,URINE NEGATIVE (NEGATIVE); COLOR,URINE YELLOW (YELLOW); LEUKOCYTE ESTERASE ,URINE TRACE (NEGATIVE); NITRITE, URINE NEGATIVE (NEGATIVE); PH,URINE 7.5 (5.0-8.0); PROTEIN,URINE NEGATIVE (NEGATIVE); UGLUCOSE NEGATIVE (NEGATIVE); UROBILINOGEN,URINE 0.2 EU/dL (0.2)
[2022-07-11] MEDS ORDERED: NAPR-1009 PO (00:21)
[2022-07-11 00:31] LABS: BACTERIA,URINE Few /HPF (None Seen); RBC,URINE 0-2 /HPF (0-2); SQUAMOUS EPITHELIAL CELL,UR Many /HPF (None Seen)
--- NOTE | 2022-07-11 01:13 | NUR ---
CALLED [facility] NO ANSWER
--- NOTE | 2022-07-11 01:46 | NUR ---
[facility] CALLED FOR BLS BACK TO SNF ETA- 90 AT THE LATEST
--- NOTE | 2022-07-11 02:05 | NUR ---
CALLED [facility] NO ANSWER
--- NOTE | 2022-07-11 02:22 | NUR ---
CALLED [facility] NO ANSWER
--- NOTE | 2022-07-11 02:41 | NUR ---
[facility] AT BEDSIDE, UNABLE TO TRANSPORT PATIENT
--- NOTE | 2022-07-11 07:58 | NUR ---
CALLED [facility] FOR TRANSPORT ETA 1300 PER JESSIE
--- NOTE | 2022-07-11 13:25 | NUR ---
MAGDALENA ALONZO CALLED FOR UPDATE. NEW ETA IS 10 MINS PER JESSIE.
[2022-07-11] MEDS ORDERED: oxyCODONE/APAP (5/325 MG) 1 UDTAB TABLET PO ONE (14:00)
--- NOTE | 2022-07-11 14:21 | NUR ---
EMT AT BEDSIDE TO PICKUP PT
[2022-07-11] MEDS ORDERED: oxyCODONE/APAP (5/325 MG) 1 UDTAB TABLET ONE (14:39)
--- NOTE | 2022-07-11 14:40 | NUR ---
IV removed. Catheter intact and site benign. Pressure and 4x4 applied to site. No bleeding noted.
--- NOTE | 2022-07-11 14:44 | NUR ---
Patient discharged [facility] in stable condition. Written and verbal after care instructions given. Patient verbalizes understanding of instruction. Patient will be transferred to [facility] at [place].
[2022-07-11 14:45] VITALS: BP 149/70
== END 2022-07-11 14:48 | disposition home or self-care (01) ==
LOC: ER 20:44
DX: G89.29 Other chronic pain (principal); M54.50 Low back pain, unspecified; M25.462 Effusion, left knee; M25.562 Pain in left knee; E66.01 Morbid (severe) obesity due to excess calories; F11.20 Opioid dependence, uncomplicated; I10 Essential (primary) hypertension; J44.9 Chronic obstructive pulmonary disease, unspecified; F17.200 Nicotine dependence, unspecified, uncomplicated; Z68.41 Body mass index [BMI] 40.0-44.9, adult; Z88.2 Allergy status to sulfonamides; Z88.8 Allergy status to other drugs, medicaments and biological substances; Z79.899 Other long term (current) drug therapy
CPT/HCPCS: 99284; 96374; 96375; 73564; 85025; 80048; 80076; 81001; 36415; J2270; J2405; J1885

== ENCOUNTER 2023-07-18 15:38 | Emergency (ER) | payer MEDICARE, OTHER ==
[~2023-07-18] VITALS: Ht 172.7 cm; Wt 116.1 kg
[~2023-07-18 15:38] MED LIST changes: +NAPR-1009 PO
[2023-07-18 16:01] VITALS: TEMP 98.1
[2023-07-18] MEDS ORDERED: MORPHINE SULFATE INJ 2 MG/ML DISP.SYRIN ONE (16:47)
[2023-07-18] MEDS ORDERED: KETOROLAC TROMETHAMINE INJ 30 MG/ML VIAL ONE (16:47)
[2023-07-18] MEDS ORDERED: MORPHINE SULFATE INJ 4 MG/ML DISP.SYRIN ONE (16:47)
[2023-07-18] MEDS ORDERED: MORPHINE SULFATE INJ 2 MG/ML DISP.SYRIN IV ONE (17:00)
[2023-07-18] MEDS ORDERED: KETOROLAC TROMETHAMINE INJ 30 MG/ML VIAL IV ONE (17:00)
[2023-07-18 17:03] LABS: BASOPHILS % (AUTO) 0.4 % (0.0-2.0); EOSINOPHILS # (AUTO) 0.1 K/uL (0.0-0.7); EOSINOPHILS % (AUTO) 1.1 % (0.0-6.0); HEMATOCRIT 45 % (33-45); HEMOGLOBIN 14.8 g/dL (11.5-14.8); LYMPHOCYTES # (AUTO) 3.7 K/uL (0.8-4.8); LYMPHOCYTES % (AUTO) 29.9 % (20.0-44.0); MEAN CORPUSCULAR HEMOGLOBIN 30 PG (26.0-33.0); MEAN CORPUSCULAR HGB CONC 33 g/dl (31.0-36.0); MEAN CORPUSCULAR VOLUME 91 fL (82-100); MONOCYTES # (AUTO) 0.7 K/uL (0.1-1.30); MONOCYTES % (AUTO) 5.8 % (2.0-12.0); NEUTROPHILS # (AUTO) 7.7 K/uL (1.8-8.9); NEUTROPHILS % (AUTO) 62.8 % (43.0-81.0); PLATELET COUNT (AUTO) 280 K/uL (150-450); RED BLOOD CELL COUNT(AUTO) 5.01 MIL/uL (4.0-5.2); RED CELL DISTRIBUTION WIDTH 13.6 % (11.5-15.0); WHITE BLOOD COUNT (AUTO) 12.3 K/uL (4.3-11.0)
[2023-07-18 17:11] LABS: CALCIUM, SERUM 9.7 mg/dL (8.5-10.1); CREATININE 0.7 mg/dL (0.6-1.3); POTASSIUM 3.8 mmol/L (3.5-5.1)
[2023-07-18 17:13] LABS: APPEARANCE,URINE CLEAR (CLEAR); BILIRUBIN,URINE NEGATIVE (NEGATIVE); BLOOD, URINE NEGATIVE Ery/uL (NEGATIVE); KETONES,URINE NEGATIVE (NEGATIVE); LEUKOCYTE ESTERASE ,URINE NEGATIVE (NEGATIVE); NITRITE, URINE NEGATIVE (NEGATIVE); PH,URINE 6.5 (5.0-8.0); PROTEIN,URINE NEGATIVE (NEGATIVE); UGLUCOSE NEGATIVE (NEGATIVE); UROBILINOGEN,URINE 0.2 EU/dL (0.2)
[2023-07-18 17:14] LABS: COLOR,URINE LIGHT YELLOW (YELLOW)
[2023-07-18] MEDS ORDERED: RISP0.2515 PO (17:24)
[2023-07-18] MEDS ORDERED: CLOT15CR27 TP (17:24)
[2023-07-18] MEDS ORDERED: CALC500T13 PO (17:24)
[2023-07-18] MEDS ORDERED: MYRBETRIQ PO (17:24)
[2023-07-18] MEDS ORDERED: SENN-261 PO (17:24)
[2023-07-18] MEDS ORDERED: OXYC5CAP18 PO (17:24)
[2023-07-18] MEDS ORDERED: PANT40TA2 PO (17:24)
[2023-07-18] MEDS ORDERED: IPRA0.2S9 IH (17:24)
[2023-07-18] MEDS ORDERED: FLUT1BLS IH (17:24)
[2023-07-18] MEDS ORDERED: ATEN50TA PO (17:24)
[2023-07-18] MEDS ORDERED: CYCL10TA9 PO (17:24)
[2023-07-18] MEDS ORDERED: AMLO-212 PO (17:24)
[2023-07-18] MEDS ORDERED: DULO60CA45 PO (17:24)
[2023-07-18] MEDS ORDERED: NYST15PO3 TP (17:24)
[2023-07-18] MEDS ORDERED: OXYC10TA49 PO (18:19)
[2023-07-18 19:18] VITALS: BP 129/88; O2SAT 100
== END 2023-07-18 19:18 ==
LOC: ER 15:42
DX: G89.29 Other chronic pain (principal); M54.50 Low back pain, unspecified; I10 Essential (primary) hypertension; J44.9 Chronic obstructive pulmonary disease, unspecified; F17.200 Nicotine dependence, unspecified, uncomplicated; Z88.2 Allergy status to sulfonamides; Z88.8 Allergy status to other drugs, medicaments and biological substances; Z79.899 Other long term (current) drug therapy
CPT/HCPCS: 99284; 96374; 96375; 85025; 80048; 81003; 36415; 84443; J2270 ×2; J1885

== ENCOUNTER 2024-01-28 11:40 | Emergency (ER) | payer MEDICARE, MEDICAID ==
[~2024-01-28] VITALS: Ht 167.6 cm; Wt 124.7 kg
[~2024-01-28 11:40] MED LIST changes: -ALBU18HF2 INH; +AMLO-212 PO; +ATEN50TA PO; +CALC500T13 PO; -CARB200T PO; -CHLO25TA13 PO; +CLOT15CR27 TP; +CYCL10TA9 PO; +DULO60CA45 PO; +FLUT1BLS IH; -GUAI100S11 PO; -HYDR-3895 PO; +IPRA0.2S9 IH; +MYRBETRIQ PO; -NAPR-1009 PO; +NYST15PO3 TP; -ONDA4TAB5 PO; -OXYC-128 PO; +OXYC10TA49 PO; +OXYC5CAP18 PO; +PANT40TA2 PO; +RISP0.2515 PO; +SENN-261 PO; -SODI100037 PO
[2024-01-28 12:25] LABS: BASOPHILS # (AUTO) 0.1 K/uL (0.0-0.2); BASOPHILS % (AUTO) 1.2 % (0.0-2.0); EOSINOPHILS # (AUTO) 0.1 K/uL (0.0-0.7); EOSINOPHILS % (AUTO) 0.7 % (0.0-6.0); HEMATOCRIT 43 % (33-45); HEMOGLOBIN 14.1 g/dL (11.5-14.8); LYMPHOCYTES # (AUTO) 3.4 K/uL (0.8-4.8); LYMPHOCYTES % (AUTO) 33.3 % (20.0-44.0); MEAN CORPUSCULAR HEMOGLOBIN 29 PG (26.0-33.0); MEAN CORPUSCULAR HGB CONC 33 g/dl (31.0-36.0); MEAN CORPUSCULAR VOLUME 88 fL (82-100); MONOCYTES # (AUTO) 0.6 K/uL (0.1-1.30); MONOCYTES % (AUTO) 5.5 % (2.0-12.0); NEUTROPHILS # (AUTO) 6.1 K/uL (1.8-8.9); NEUTROPHILS % (AUTO) 59.3 % (43.0-81.0); PLATELET COUNT (AUTO) 296 K/uL (150-450); RED BLOOD CELL COUNT(AUTO) 4.87 MIL/uL (4.0-5.2); RED CELL DISTRIBUTION WIDTH 14.6 % (11.5-15.0); WHITE BLOOD COUNT (AUTO) 10.3 K/uL (4.3-11.0)
[2024-01-28 12:38] LABS: CALCIUM, SERUM 8.9 mg/dL (8.5-10.1); CARBON DIOXIDE 30 mmol/L (21-32); CHLORIDE 102 mmol/L (98-107); CREATININE 0.6 mg/dL (0.6-1.3); GLUCOSE 88 mg/dL (74-106); POTASSIUM 4.2 mmol/L (3.5-5.1); SODIUM SERUM 136 mmol/L (136-145); UREA NITROGEN, BLOOD 10 mg/dL (7-18)
[2024-01-28] MEDS ORDERED: predniSONE 20 MG TABLET ONE (12:38)
[2024-01-28] MEDS: predniSONE 20 MG TABLET PO ONE (12:41)
[2024-01-28] MEDS ORDERED: IPRATROPIUM NEB FS 0.5 MG/2.5 ML AMPUL.NEB ONE (12:44)
[2024-01-28] MEDS ORDERED: ALBUTEROL FS 2.5 MG/3 ML VIAL.NEB ONE (12:44)
[2024-01-28 12:46] VITALS: O2SAT 97
[2024-01-28] MEDS: IPRATROPIUM NEB FS 0.5 MG/2.5 ML AMPUL.NEB NEB ONE (12:46)
[2024-01-28 12:57] LABS: NT-PRO BNP 524 pg/mL (0-125)
[2024-01-28] MEDS: ALBUTEROL FS 2.5 MG/3 ML VIAL.NEB NEB ONE (12:57)
[2024-01-28 13:01] VITALS: O2SAT 98
[2024-01-28] MEDS ORDERED: PRED50TA PO (14:35)
[2024-01-28] MEDS ORDERED: KETOROLAC TROMETHAMINE 15 MG/ML VIAL ONE (14:45)
[2024-01-28] MEDS ORDERED: LORAZEPAM 1 MG TABLET ONE (14:46)
[2024-01-28] MEDS: KETOROLAC TROMETHAMINE 15 MG/ML VIAL IV ONE (14:52)
[2024-01-28] MEDS: LORAZEPAM 1 MG TABLET PO ONE (14:54)
[2024-01-28 16:18] VITALS: BP 132/66; TEMP 98.2; O2SAT 93
== END 2024-01-28 16:29 | disposition home or self-care (01) ==
LOC: ER 11:42
DX: R06.02 Shortness of breath (principal); M79.89 Other specified soft tissue disorders; M79.604 Pain in right leg; M79.605 Pain in left leg; R06.2 Wheezing; I10 Essential (primary) hypertension; J44.9 Chronic obstructive pulmonary disease, unspecified; Z88.2 Allergy status to sulfonamides
CPT/HCPCS: 99285; 93970; 96374; 71045; 93005; 85025; 80048; 36415; 84484; 83880; 94640; J7512; J1885

== ENCOUNTER 2024-02-24 19:34 | Emergency (ER) | payer MEDICARE, MEDICAID ==
[~2024-02-24] VITALS: Ht 167.6 cm; Wt 117.9 kg
[~2024-02-24 19:34] MED LIST changes: +PRED50TA PO
[2024-02-24 19:56] VITALS: BP 114/50; TEMP 99
[2024-02-24] MEDS ORDERED: NYST15PO4 TP (21:05)
[2024-02-24] MEDS ORDERED: CLOT15CR27 TP (21:05)
[2024-02-24 23:08] VITALS: O2SAT 96
[2024-02-25] MEDS ORDERED: DICL100G26 TP (16:57)
[2024-02-25] MEDS ORDERED: NAPR-1009 PO (16:57)
[2024-02-25] MEDS ORDERED: MULT-366 PO (16:57)
[2024-02-25] MEDS ORDERED: MORP15TA PO (16:57)
[2024-02-25] MEDS ORDERED: HYDR-3980 PO (16:57)
[2024-02-25] MEDS ORDERED: MAG355OR44 PO (16:57)
[2024-02-25] MEDS ORDERED: BUPR1FIL19 SL (16:57)
[2024-02-25] MEDS ORDERED: FERR325T28 PO (16:57)
[2024-02-25] MEDS ORDERED: ONDA-97 PO (16:57)
== END 2024-02-24 23:19 ==
LOC: ER 19:55
DX: B35.6 Tinea cruris (principal); G30.0 Alzheimer's disease with early onset; F02.80 Dementia in other diseases classified elsewhere, unspecified severity, without behavioral disturbance, psychotic disturbance, mood disturbance, and anxiety; J44.9 Chronic obstructive pulmonary disease, unspecified; Z88.2 Allergy status to sulfonamides; Z88.8 Allergy status to other drugs, medicaments and biological substances; Z79.899 Other long term (current) drug therapy

== ENCOUNTER 2024-02-25 15:52 | Inpatient (IN) | payer MEDICARE, OTHER ==
[~2024-02-25] VITALS: Ht 167.6 cm; Wt 97.5 kg
[~2024-02-25 15:52] MED LIST changes: +NYST15PO4 TP
[2024-02-25] MEDS ORDERED: KETOROLAC TROMETHAMINE 15 MG/ML VIAL ONE (16:28)
[2024-02-25] MEDS: KETOROLAC TROMETHAMINE 15 MG/ML VIAL IV ONE (16:30)
[2024-02-25 16:45] LABS: BASOPHILS # (AUTO) 0.1 K/uL (0.0-0.2); EOSINOPHILS # (AUTO) 0.2 K/uL (0.0-0.7); EOSINOPHILS % (AUTO) 1.4 % (0.0-6.0); HEMATOCRIT 44 % (33-45); HEMOGLOBIN 14.4 g/dL (11.5-14.8); LYMPHOCYTES # (AUTO) 3.5 K/uL (0.8-4.8); LYMPHOCYTES % (AUTO) 32.6 % (20.0-44.0); MEAN CORPUSCULAR HEMOGLOBIN 29 PG (26.0-33.0); MEAN CORPUSCULAR HGB CONC 33 g/dl (31.0-36.0); MEAN CORPUSCULAR VOLUME 88 fL (82-100); MONOCYTES # (AUTO) 0.8 K/uL (0.1-1.30); MONOCYTES % (AUTO) 7.2 % (2.0-12.0); NEUTROPHILS # (AUTO) 6.2 K/uL (1.8-8.9); NEUTROPHILS % (AUTO) 57.8 % (43.0-81.0); PLATELET COUNT (AUTO) 316 K/uL (150-450); RED BLOOD CELL COUNT(AUTO) 4.97 MIL/uL (4.0-5.2); RED CELL DISTRIBUTION WIDTH 14.5 % (11.5-15.0); WHITE BLOOD COUNT (AUTO) 10.7 K/uL (4.3-11.0)
[2024-02-25 16:56] LABS: CALCIUM, SERUM 9.4 mg/dL (8.5-10.1); CREATININE 0.6 mg/dL (0.6-1.3); POTASSIUM 3.6 mmol/L (3.5-5.1)
[2024-02-25] MEDS ORDERED: FERR325T28 PO (16:57)
[2024-02-25] MEDS ORDERED: NAPR-1009 PO (16:57)
[2024-02-25] MEDS ORDERED: MAG355OR44 PO (16:57)
[2024-02-25] MEDS ORDERED: MULT-366 PO (16:57)
[2024-02-25] MEDS ORDERED: HYDR-3980 PO (16:57)
[2024-02-25] MEDS ORDERED: ONDA-97 PO (16:57)
[2024-02-25] MEDS ORDERED: MORP15TA PO (16:57)
[2024-02-25] MEDS ORDERED: BUPR1FIL19 SL (16:57)
[2024-02-25] MEDS ORDERED: DICL100G26 TP (16:57)
[2024-02-25 19:24] VITALS: BP 154/83; TEMP 97.9
[2024-02-25 20:00] VITALS: BP 153/84; TEMP 97.9; O2SAT 98
[2024-02-25] MEDS: clonazePAM 0.5 MG TABLET PO ONE (22:17)
[2024-02-25] MEDS ORDERED: ONDANSETRON HCL/PF 4 MG/2 ML VIAL IVP PRN (22:30)
[2024-02-25] MEDS: ENOXAPARIN SODIUM 40 MG/0.4 ML DISP.SYRIN SQ SCH (22:57)
[2024-02-25] MEDS: ACETAMINOPHEN 325 MG TABLET PO PRN (22:57)
[2024-02-25] MEDS: ATORVASTATIN 10 MG TABLET PO SCH (22:57)
[2024-02-25] MEDS: ARIPIPRAZOLE 5 MG TABLET PO SCH (22:57)
[2024-02-26 04:00] VITALS: BP 128/77; TEMP 98.1; O2SAT 95
[2024-02-26 06:51] LABS: CALCIUM, SERUM 8.4 mg/dL (8.5-10.1); CREATININE 0.6 mg/dL (0.6-1.3); MAGNESIUM 1.9 mg/dL (1.8-2.4); PHOSPHORUS 3.7 mg/dL (2.5-4.9); POTASSIUM 3.7 mmol/L (3.5-5.1)
[2024-02-26 08:20] LABS: BASOPHILS # (AUTO) 0.1 K/uL (0.0-0.2); BASOPHILS % (AUTO) 0.5 % (0.0-2.0); EOSINOPHILS # (AUTO) 0.2 K/uL (0.0-0.7); EOSINOPHILS % (AUTO) 1.5 % (0.0-6.0); HEMATOCRIT 41 % (33-45); HEMOGLOBIN 13.6 g/dL (11.5-14.8); LYMPHOCYTES # (AUTO) 3.1 K/uL (0.8-4.8); LYMPHOCYTES % (AUTO) 29.4 % (20.0-44.0); MEAN CORPUSCULAR HEMOGLOBIN 29 PG (26.0-33.0); MEAN CORPUSCULAR HGB CONC 33 g/dl (31.0-36.0); MEAN CORPUSCULAR VOLUME 89 fL (82-100); MONOCYTES # (AUTO) 0.6 K/uL (0.1-1.30); MONOCYTES % (AUTO) 5.8 % (2.0-12.0); NEUTROPHILS # (AUTO) 6.7 K/uL (1.8-8.9); NEUTROPHILS % (AUTO) 62.8 % (43.0-81.0); PLATELET COUNT (AUTO) 293 K/uL (150-450); RED BLOOD CELL COUNT(AUTO) 4.66 MIL/uL (4.0-5.2); RED CELL DISTRIBUTION WIDTH 14.8 % (11.5-15.0); WHITE BLOOD COUNT (AUTO) 10.6 K/uL (4.3-11.0)
[2024-02-26] MEDS: Z GUARD REMEDY 4 OZ OINT TP SCH (09:30)
[2024-02-26] MEDS ORDERED: MORPHINE SULFATE IR 15 MG TABLET PO PRN (13:00)
[2024-02-26] MEDS ORDERED: ALBUTEROL FS 2.5 MG/3 ML VIAL.NEB IH PRN (13:00)
[2024-02-26] MEDS: Z GUARD REMEDY 4 OZ OINT TP PRN (14:14)
[2024-02-26] MEDS: ATENOLOL 50 MG TABLET PO SCH (14:15)
[2024-02-26] MEDS: FERROUS SULFATE (325 MG) 325 MG/TAB TABLET PO SCH (14:15)
[2024-02-26] MEDS: MULTIVITAMINS,THERAGRAN 1 UDTAB TABLET PO SCH (14:15)
[2024-02-26] MEDS: AMLODIPINE BESYLATE 5 MG TABLET PO SCH (14:15)
[2024-02-26] MEDS: clonazePAM 0.5 MG TABLET PO SCH (14:15)
[2024-02-26] MEDS: DULOXETINE HCL 30 MG CAPSULE.DR PO SCH (14:15)
[2024-02-26] MEDS: risperiDONE 1 MG TABLET PO SCH (14:19)
[2024-02-26] MEDS: HYDROCODONE/APAP 10/325MG TABLET PO SCH (14:19)
[2024-02-26] MEDS: CLOTRIMAZOLE 1% 15 GM TUBE TP SCH (17:12)
[2024-02-26] MEDS: MUPIROCIN OINT 2% 22 GM TUBE TP SCH (18:12)
[2024-02-26 20:00] VITALS: BP 130/71; TEMP 98.1; O2SAT 95
[2024-02-26] MEDS: NEOMY SULF/BACITRAC ZN/POLY 15 GM TUBE TP SCH (21:26)
[2024-02-26] MEDS: SENNOSIDES 8.6 MG TABLET PO SCH (21:26)
[2024-02-26] MEDS ORDERED: ATORVASTATIN 10 MG TABLET PO SCH (22:00)
[2024-02-26 22:05] VITALS: BP 130/71; TEMP 98.3; O2SAT 96
[2024-02-27 04:00] VITALS: BP 129/65; TEMP 97.5; O2SAT 95
[2024-02-27 08:00] VITALS: BP 132/69; TEMP 98.4; O2SAT 95
[2024-02-27 16:00] VITALS: BP 135/58; TEMP 97.5; O2SAT 97
[2024-02-27] MEDS: NAPROXEN 500 MG TABLET PO PRN (17:27)
[2024-02-27 20:00] VITALS: BP 108/52; TEMP 97.5; O2SAT 94
[2024-02-28 04:00] VITALS: BP 106/55; TEMP 98; O2SAT 94
[2024-02-28 08:00] VITALS: BP 127/72; TEMP 98.2; O2SAT 96
[2024-02-28 09:04] VITALS: BP 160/72
== END 2024-02-28 11:30 | DRG 206 ==
LOC: ER 15:56 → MEDSG1 18:14 → TELE1 18:52 → MEDSG1 19:01
PROVIDERS: ADMIT Nurse Practitioner Acute Care; ATTEND Nurse Practitioner Acute Care
DX: M94.0 Chondrocostal junction syndrome [Tietze] (principal); E87.1 Hypo-osmolality and hyponatremia; M54.9 Dorsalgia, unspecified; M19.90 Unspecified osteoarthritis, unspecified site; E03.9 Hypothyroidism, unspecified; F03.90 Unspecified dementia, unspecified severity, without behavioral disturbance, psychotic disturbance, mood disturbance, and anxiety; Z88.2 Allergy status to sulfonamides; Z86.73 Personal history of transient ischemic attack (TIA), and cerebral infarction without residual deficits; J44.9 Chronic obstructive pulmonary disease, unspecified; Z79.899 Other long term (current) drug therapy; M48.00 Spinal stenosis, site unspecified; Z88.8 Allergy status to other drugs, medicaments and biological substances; Z79.51 Long term (current) use of inhaled steroids; E83.51 Hypocalcemia; G89.29 Other chronic pain; E78.5 Hyperlipidemia, unspecified; J43.9 Emphysema, unspecified; I10 Essential (primary) hypertension; F20.9 Schizophrenia, unspecified; F17.200 Nicotine dependence, unspecified, uncomplicated
CPT/HCPCS: 36415; 71045-TC; 72128-TC; 80048-TC; 83735-TC; 84100-TC; 85025-TC; A6253; G0378; J1650; J1885